=== PATIENT | male | born 1940 ===

== ENCOUNTER 2018-12-18 18:05 | Observation (INO) | payer OTHER ==
[2018-12-18] MEDS ORDERED: Pantoprazole 80 MG in Sodium Chloride 0.9% 100 ML IV STA (18:40)
[2018-12-18] MEDS ORDERED: Sodium Chloride 0.9% 1,000 ML IV ONE ×2 (18:40→23:10)
[2018-12-18 19:22] LABS: BASO % 0.3 % (0.0-2.0); EOS % 0.2 % (0.0-4.0); HEMOGLOBIN 14.3 g/dL (12.0-18.0); LYMPH # 1.2 K/uL (1.0-4.3); LYMPH % 7.6 % (20.0-40.0); MEAN CELL VOLUME 95.3 fL (80.0-94.0); MEAN CORPUSCULAR HEMOGLOBIN 32.2 pg (27.0-31.0); MEAN CORPUSCULAR HGB CONC 33.8 g/dL (33.0-37.0); MEAN PLATELET VOLUME 10.2 fL (7.2-11.7); MONO # 1.2 K/uL (0.0-0.8); MONO % 7.3 % (0.0-10.0); NEUT # 13.4 K/uL (1.8-7.0); NEUT % 84.6 % (50.0-75.0); PLATELET COUNT 173 K/uL (130-400); RBC 4.44 Mil/uL (4.40-5.90); RED CELL DISTRIBUTION WIDTH 13.1 % (11.5-14.5); WHITE BLOOD COUNT 15.9 K/uL (4.8-10.8)
[2018-12-18 19:33] LABS: INR 1.3; PROTHROMBIN TIME 14.4 SECONDS (9.7-12.2)
[2018-12-18 19:35] LABS: ALB/GLOB RATIO 1.2 (1.0-2.1); ALBUMIN 3.9 g/dL (3.5-5.0); CALCIUM 9.4 mg/dl (8.6-10.4)
--- NOTE | 2018-12-18 19:35 | C.PDOC ---
History Of Present Illness 78-year-old male presents to the ED after being sent by Dr. Jose Duncan for evaluation of epigastric abdominal pain which began around one week ago. Patient reports noticing black stool for several days. He also reports nausea, poor appetite, and trouble eating. Patient admits to taking Pepto-Bismol for his symptoms. Of note, patient states he was recently diagnosed with arrhythmia and was referred to a hi lo driver, but states he has not yet followed up. He denies fever, chills, vomiting. Time Seen by Provider: 12/18/18 18:28 Chief Complaint (Nursing): Abdominal Pain History Per: Patient History/Exam Limitations: no limitations Onset/Duration Of Symptoms: Days (one week ), Persistent Current Symptoms Are (Timing): Still Present Location Of Pain/Discomfort: Epigastric Radiation Of Pain To:: None Quality Of Discomfort: "Pain" Associated Symptoms: Nausea. denies: Fever, Chills, Vomiting Additional History Per: Patient Past Medical History Reviewed: Historical Data, Nursing Documentation, Vital Signs Vital Signs: Last Vital Signs Temp 98.3 F 12/18/18 18:17 Pulse 100 H 12/18/18 19:06 Resp 18 12/18/18 19:06 BP 112/60 12/18/18 19:06 Pulse Ox 98 12/18/18 19:06 - Medical History PMH: No Chronic Diseases Surgical History: No Surg Hx Family History: States: Unknown Family Hx - Social History Hx Alcohol Use: No Hx Substance Use: No - Immunization History Hx Tetanus Toxoid Vaccination: No Hx Influenza Vaccination: No Hx Pneumococcal Vaccination: No Review Of Systems Constitutional: Positive for: Other (poor appetite, trouble eating ). Negative for: Fever, Chills Gastrointestinal: Positive for: Nausea, Abdominal Pain, Other (black stool ). Negative for: Vomiting Physical Exam - Physical Exam Appears: Non-toxic, No Acute Distress Skin: Normal Color, Warm, Dry Head: Atraumatic, Normacephalic Eye(s): bilateral: Normal Inspection Oral Mucosa: Moist Neck: Supple Chest: Symmetrical, No Deformity, No Tenderness Cardiovascular: Rhythm Irregular, Murmur, Other (borderline tachycardic) Respiratory: Normal Breath Sounds, No Rales, No Rhonchi, No Wheezing Gastrointestinal/Abdominal: Bowel Sounds (normal ), Soft, Tenderness (epigastric ), Guarding (mild), No Rebound Rectal: Rectal Tone (normal ), Other (black stool noted, negative stool guaiac test) Extremity: Normal ROM, Capillary Refill (less than 2 seconds ) Neurological/Psych: Oriented x3, Normal Speech, Normal Cognition ED Course And Treatment - Laboratory Results Result Diagrams: 12/18/18 19:17 12/18/18 19:17 Lab Results: PT 14.4 SECONDS (9.7-12.2) H 12/18/18 19:17 INR 1.3 12/18/18 19:17 APTT 37.0 SECONDS (21-34) H 12/18/18 19:17 Total Bilirubin 2.4 mg/dL (0.2-1.3) H 12/18/18 19:17 AST 30 U/L (17-59) 12/18/18 19:17 ALT 33 U/L (21-72) 12/18/18 19:17 Alkaline Phosphatase 76 U/L (38-126) 12/18/18 19:17 Total Protein 7.2 g/dL (6.3-8.3) 12/18/18 19:17 Albumin 3.9 g/dL (3.5-5.0) 12/18/18 19:17 Globulin 3.3 gm/dL (2.2-3.9) 12/18/18 19:17 Albumin/Globulin Ratio 1.2 (1.0-2.1) 12/18/18 19:17 Lipase 18 U/L (23-300) L 12/18/18 19:17 Lab Interpretation: Abnormal (WBC 15.9, BUN 38 Cr 1.4) ECG: Interpreted By Nc ECG Rhythm: Atrial Fibrillation ECG Interpretation: Abnormal O2 Sat by Pulse Oximetry: 98 (on RA) Pulse Ox Interpretation: Normal - Radiology CXR: Interpreted by Nc CXR Interpretation: Yes: No Acute Disease - CT Scan/US CT A/P Other Rad Studies (CT/US): Read By Radiologist, Radiology Report Reviewed CT/US Interpretation: CT SCAN OF THE ABDOMEN AND PELVIS WITH CONTRAST. CLINICAL HISTORY: Epigastric pain. Comparison: 05/13/2015. TECHNIQUE: Multiple axial and coronal CT images were obtained through the abdomen and pelvis without administration of intravenous contrast material. Patient ingested oral contrast. COMMENTS: Distended gallbladder. Cholelithiasis. Diffuse thickening of the gallbladder with prominent surrounding inflammatory fat stranding. Findings are suggestive of acute calculous cholecystitis without perforation or abscess formation. Bilateral fat containing inguinal hernias without incarceration. Mild prostatomegaly. Mild diffuse thickening of the wall of the bladder. Uncomplicated colonic diverticulosis. Scattered prostatic calcifications. 1.0 cm right renal cyst. 4.6 cm left renal simple cyst. The liver is of uniform attenuation without mass or defect. There is no intra or extrahepatic biliary ductal dilatation. The spleen is normal. The pancreas is of normal contour and attenuation characteristics. There is no evidence of adrenal mass. The kidneys are normal in size, shape and configuration. There is no evidence of renal or ureteral mass. No renal or ureteral calculi are identified. There is no hydroureter or hydronephrosis. No evidence for appendicitis. There is no bowel wall thickening. No evidence for small or large bowel obstruction. There is no evidence of abdominal ascites or lymphadenopathy. There is no evidence of intrinsic or extrinsic bladder mass. There is no pelvic ascites or lymphadenopathy. Images of the lung bases show no evidence of pleural or parenchymal mass. There are no pleural effusions. The bony structures are free of lytic or blastic lesions. Moderate diffuse spondylosis. IMPRESSION: Distended gallbladder. Cholelithiasis. Diffuse thickening of the gallbladder with prominent surrounding inflammatory fat stranding. Findings are suggestive of acute calculous cholecystitis without perforation or abscess formation. Bilateral fat containing inguinal hernias without incarceration. Mild prostatomegaly. Mild diffuse thickening of the wall of the bladder. Probably mild cystitis. Uncomplicated colonic diverticulosis. Scattered prostatic calcifications. 1.0 cm right renal cyst. 4.6 cm left renal simple cyst. Progress Note: Bloodwork, urinalysis, CXR, EKG, CT A/P ordered and reviewed. Protonix IVP and IV Fluids given. - Physician Consult Information Physician Contacted: Jm Nolan Outcome Of Conversation: He agrees to admit patient for Dr Ke Duncan. Disposition - Disposition Disposition: HOSPITALIZED Disposition Time: 20:41 Condition: STABLE - POA Present On Arrival: None - Clinical Impression Clinical Impression: Abdominal pain, Dehydration, Atrial fibrillation, Cholecystitis with cholelithiasis - PA / PHOTOGRAPH EDITOR / Resident Statement MD/DO has reviewed & agrees with the documentation as recorded. - Scribe Statement The provider has reviewed the documentation as recorded by the Scribe (Shagufta Antunez) Provider Attestation: All medical record entries made by the Scribe were at my direction and personally dictated by me. I have reviewed the chart and agree that the record accurately reflects my personal performance of the history, physical exam, medical decision making, and the department course for this patient. I have also personally directed, reviewed, and agree with the discharge instructions and disposition.
[2018-12-18] MEDS ORDERED: Iohexol 240 (50 ml) ONE (20:15)
[2018-12-18 20:40] LABS: BANDS 5 % (0-2); LYMPHOCYTE 9 % (20-40); MONOCYTE 4 % (0-10); NEUTROPHIL 82 % (50-75); TOTAL CELLS COUNTED 100
[2018-12-18 20:41] LABS: GIANT PLATELETS PRESENT; LARGE PLATELETS PRESENT; MICROCYTOSIS SLIGHT; PLATELET ESTIMATE NORMAL (NORMAL); TEARDROP CELLS SLIGHT
[2018-12-18 21:24] VITALS: RESP 20
[2018-12-18 21:43] LABS: SQUAMOUS EPITHIAL < 1 /hpf (0-5); URINE BACTERIA OCC (<OCC); URINE BILIRUBIN NEGATIVE (NEGATIVE); URINE BLOOD 2+ (NEGATIVE); URINE CLARITY Hazy (Clear); URINE COLOR Yellow (YELLOW); URINE GLUCOSE (UA) NORMAL (Normal); URINE LEUKOCYTE ESTERASE NEG Leu/uL (Negative); URINE PROTEIN 2+ mg/dL (NEGATIVE)
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
--- NOTE | 2018-12-19 03:20 | CP.PCM.CON ---
History of Present Illness - History of Present Illness History of Present Illness: General Surgery Consult for Dr. Wilson Reason for consult: abd pain, rule out cholecystitis 78 M with PMH of HLD who presents for abdominal pain. Patient was seen and examined on 6T. He states his pain started on Sunday. He stated that the pain had gotten progressively worse over the last few days. Patient tried taking pepto-bismol which provided minimal relief. he denies fever/chills or nauea/vomiting. He states his last bowel movement was 2 days ago and it was dark. He was seen at PMD Dr. Jose Duncna's office yesterday who recommended that patient come in for evaluation of possible GI bleed, abdominal pain and cardiac arrhythmia. He has no prior history of cardiac issues. He currenly denies any chest pain, palpitations, shortness of breath, abd pain, n/v/d, hematochezia, melena, dizziness/lightheadedness, fatigue, malaise, urinary symptoms. PMD: Dr. Jose Duncan PMH: Hyperlipidemia PSH: denies All: NKDA Social: former smoker quit in 1983 (smoked 1.5ppd), (+) ETOH use - one drink every 6 months. Denies illicit drug use. Review of Systems - Review of Systems All systems: reviewed and no additional remarkable complaints except (as per HPI) Past Patient History - Infectious Disease Hx of Infectious Diseases: None - Past Social History Smoking Status: Never Smoked - PSYCHIATRIC Hx Substance Use: No - SURGICAL HISTORY Hx Surgeries: No - ANESTHESIA Hx Anesthesia: Yes Hx Anesthesia Reactions: No Hx Malignant Hyperthermia: No Meds Allergies/Adverse Reactions: Allergies Allergy/AdvReac Type Severity Reaction Status Date / Time No Known Allergies Allergy Verified 12/18/18 18:22 - Medications Medications: Current Medications Aspirin (Aspirin Chewable) 81 mg PO DAILY SHILOH Sodium Chloride (Sodium Chloride 0.9%) 1,000 mls @ 100 mls/hr IV .Q10H ONE Stop: 12/19/18 09:09 Last Admin: 12/18/18 23:45 Dose: 100 mls/hr Ceftriaxone Sodium 1 gm/ (Sodium Chloride) 100 mls @ 100 mls/hr IVPB DAILY SHILOH; Protocol Last Admin: 12/19/18 01:35 Dose: 100 mls/hr Physical Exam - Constitutional Appears: No Acute Distress - Head Exam Head Exam: ATRAUMATIC, NORMOCEPHALIC - Eye Exam Eye Exam: EOMI, Normal appearance. absent: Scleral icterus Pupil Exam: PERRL - ENT Exam ENT Exam: Mucous Membranes Moist - Respiratory Exam Respiratory Exam: NORMAL BREATHING PATTERN - Cardiovascular Exam Cardiovascular Exam: Irregular Rhythm - GI/Abdominal Exam GI & Abdominal Exam: Normal Bowel Sounds, Soft. absent: Distended, Firm, Guarding, Hernia, Rebound, Rigid, Tenderness - Extremities Exam Extremities exam: Positive for: normal capillary refill, pedal pulses present - Back Exam Back exam: absent: CVA tenderness (L), CVA tenderness (R) - Neurological Exam Neurological exam: Alert, CN II-XII Intact, Oriented x3 - Psychiatric Exam Psychiatric exam: Normal Affect, Normal Mood - Skin Skin Exam: Dry, Intact, Warm Results - Vital Signs Recent Vital Signs: Last Vital Signs Temp 98.4 F 12/18/18 23:10 Pulse 86 12/18/18 23:30 Resp 20 12/18/18 23:10 BP 117/66 12/18/18 23:10 Pulse Ox 98 12/19/18 00:54 - Labs Result Diagrams: 12/18/18 19:17 12/18/18 19:17 Labs: Laboratory Results - last 24 hr 12/18/18 12/18/18 12/18/18 18:47 19:17 19:17 WBC 15.9 H RBC 4.44 Hgb 14.3 Hct 42.3 MCV 95.3 H MCH 32.2 H MCHC 33.8 RDW 13.1 Plt Count 173 MPV 10.2 Neut % (Auto) 84.6 H Lymph % (Auto) 7.6 L Sargent % (Auto) 7.3 Eos % (Auto) 0.2 Baso % (Auto) 0.3 Neut # (Auto) 13.4 H Lymph # (Auto) 1.2 Sargent # (Auto) 1.2 H Eos # (Auto) 0.0 Baso # (Auto) 0.0 Neutrophils % (Manual) 82 H Band Neutrophils % 5 H Lymphocytes % (Manual) 9 L Monocytes % (Manual) 4 Eosinophils % (Manual) TEST NOT PERFORMED Platelet Estimate Normal Large Platelets Present Giant Platelets Present Microcytosis (manual) Slight Tear Drop Cells Slight PT 14.4 H INR 1.3 APTT 37.0 H Sodium Potassium Chloride Carbon Dioxide Anion Gap BUN Creatinine Est GFR ( Amer) Est GFR (Non-Af Amer) POC Glucose (mg/dL) Random Glucose Calcium Total Bilirubin AST ALT Alkaline Phosphatase Total Protein Albumin Globulin Albumin/Globulin Ratio Lipase Urine Color Urine Clarity Urine pH Ur Specific Wallis Urine Protein Urine Glucose (UA) Urine Ketones Urine Blood Urine Nitrate Urine Bilirubin Urine Urobilinogen Ur Leukocyte Esterase Urine WBC (Auto) Urine RBC (Auto) Ur Squamous Epith Cells Urine Bacteria Stool Occult Blood Negative Blood Type Antibody Screen 12/18/18 12/18/18 12/18/18 19:17 19:17 21:41 WBC RBC Hgb Hct MCV MCH MCHC RDW Plt Count MPV Neut % (Auto) Lymph % (Auto) Sargent % (Auto) Eos % (Auto) Baso % (Auto) Neut # (Auto) Lymph # (Auto) Sargent # (Auto) Eos # (Auto) Baso # (Auto) Neutrophils % (Manual) Band Neutrophils % Lymphocytes % (Manual) Monocytes % (Manual) Eosinophils % (Manual) Platelet Estimate Large Platelets Giant Platelets Microcytosis (manual) Tear Drop Cells PT INR APTT Sodium 137 Potassium 4.2 Chloride 96 L Carbon Dioxide 33 H Anion Gap 13 BUN 38 H Creatinine 1.4 Est GFR ( Amer) 60 Est GFR (Non-Af Amer) 49 POC Glucose (mg/dL) Random Glucose 116 H Calcium 9.4 Total Bilirubin 2.4 H AST 30 ALT 33 Alkaline Phosphatase 76 Total Protein 7.2 Albumin 3.9 Globulin 3.3 Albumin/Globulin Ratio 1.2 Lipase 18 L Urine Color Yellow Urine Clarity Hazy Urine pH 5.0 Ur Specific Wallis 1.020 Urine Protein 2+ H Urine Glucose (UA) Normal Urine Ketones Negative Urine Blood 2+ H Urine Nitrate Negative Urine Bilirubin Negative Urine Urobilinogen 2.0 Ur Leukocyte Esterase Neg Urine WBC (Auto) 3 Urine RBC (Auto) 38 H Ur Squamous Epith Cells < 1 Urine Bacteria Occ H Stool Occult Blood Blood Type O POSITIVE Antibody Screen Negative 12/18/18 22:10 WBC RBC Hgb Hct MCV MCH MCHC RDW Plt Count MPV Neut % (Auto) Lymph % (Auto) Sargent % (Auto) Eos % (Auto) Baso % (Auto) Neut # (Auto) Lymph # (Auto) Sargent # (Auto) Eos # (Auto) Baso # (Auto) Neutrophils % (Manual) Band Neutrophils % Lymphocytes % (Manual) Monocytes % (Manual) Eosinophils % (Manual) Platelet Estimate Large Platelets Giant Platelets Microcytosis (manual) Tear Drop Cells PT INR APTT Sodium Potassium Chloride Carbon Dioxide Anion Gap BUN Creatinine Est GFR ( Amer) Est GFR (Non-Af Amer) POC Glucose (mg/dL) 115 H Random Glucose Calcium Total Bilirubin AST ALT Alkaline Phosphatase Total Protein Albumin Globulin Albumin/Globulin Ratio Lipase Urine Color Urine Clarity Urine pH Ur Specific Wallis Urine Protein Urine Glucose (UA) Urine Ketones Urine Blood Urine Nitrate Urine Bilirubin Urine Urobilinogen Ur Leukocyte Esterase Urine WBC (Auto) Urine RBC (Auto) Ur Squamous Epith Cells Urine Bacteria Stool Occult Blood Blood Type Antibody Screen Assessment & Plan - Assessment and Plan (Free Text) Assessment: 78 M who presented with abd pain and hyperbilirubinemia Plan: -f/u RUQ US -Trend bilirubin -Pain control -Recommend rate control and anti-coagulation for new-onset afib -Further recommendations as per Dr. Katie Andrade PGY2 - Date & Time Date: 12/19/18 Time: 04:30
[2018-12-19] MEDS: Lactated Ringer's 1,000 ML IV SCH ×2 (05:30→13:28)
--- NOTE | 2018-12-19 07:42 | RAD ---
Date of service: 12/18/2018 PROCEDURE: CHEST RADIOGRAPH, 1 VIEW HISTORY: GI Bleeding COMPARISON: None available. FINDINGS: LUNGS: Clear. PLEURA: No pneumothorax or pleural fluid seen. CARDIOVASCULAR: There is presence of aortic atherosclerotic calcification on x-ray. Normal. OSSEOUS STRUCTURES: No significant abnormalities. VISUALIZED UPPER ABDOMEN: Normal. OTHER FINDINGS: None. IMPRESSION: No active disease.Other findings as above.
--- NOTE | 2018-12-19 07:45 | CP.PCM.PN ---
<Maria M Alexander - Last Filed: 12/19/18 19:57> Subjective - Date & Time of Evaluation Date of Evaluation: 12/19/18 Time of Evaluation: 07:44 - Subjective Subjective: PGY-1 Maria M Alexander D.O. Medicine progress note for Dr. Castro's service: Patient was seen and examined this morning. Patient states that he is feeling much better than yesterday. He only has mild abdominal pain. He denies nausea and vomiting. Denies chest pain and palpitations. Objective - Vital Signs/Intake and Output Vital Signs (last 24 hours): Temp Pulse Resp BP Pulse Ox 98.4 F 87 20 117/66 98 12/18/18 23:10 12/19/18 05:20 12/18/18 23:10 12/18/18 23:10 12/19/18 00:54 - Medications Medications: Current Medications Aspirin (Aspirin Chewable) 81 mg PO DAILY SHILOH Ceftriaxone Sodium 1 gm/ (Sodium Chloride) 100 mls @ 100 mls/hr IVPB DAILY SHILOH; Protocol Last Admin: 12/19/18 01:35 Dose: 100 mls/hr Lactated Ringer's (Lactated Ringer's) 1,000 mls @ 125 mls/hr IV .Q8H SHILOH Last Admin: 12/19/18 05:30 Dose: 125 mls/hr Pantoprazole Sodium (Protonix Inj) 40 mg IVP DAILY SHILOH - Labs Labs: 12/18/18 19:17 12/18/18 19:17 PT 14.4 SECONDS (9.7-12.2) H 12/18/18 19:17 INR 1.3 12/18/18 19:17 APTT 37.0 SECONDS (21-34) H 12/18/18 19:17 - Constitutional Appears: Non-toxic, No Acute Distress - Head Exam Head Exam: ATRAUMATIC, NORMAL INSPECTION - Eye Exam Eye Exam: EOMI, Normal appearance - ENT Exam ENT Exam: Mucous Membranes Moist - Respiratory Exam Respiratory Exam: Clear to Ausculation Bilateral, NORMAL BREATHING PATTERN - Cardiovascular Exam Cardiovascular Exam: RRR, Murmur - GI/Abdominal Exam GI & Abdominal Exam: Soft, Tenderness (mild), Hernia (umbilical) - Extremities Exam Extremities Exam: Normal Inspection - Neurological Exam Neurological Exam: Alert - Psychiatric Exam Psychiatric exam: Normal Affect, Normal Mood - Skin Skin Exam: Dry, Normal Color, Warm Assessment and Plan - Assessment and Plan (Free Text) Assessment: Patient is a 78 yo male with HLD who presented with abdominal pain. Patient found to have new onset Afib and systolic murmur. Patient with imaging consistent with cholecystisis. Echo shows severe aortic stenosis. Plan: Severe aortic stenosis - Echo: severe aortic stenosis, with very high gradients - Final report pending - Cardiology consulted ([facility])- rec TAVR as outpatient New onset Atrial fibrillation - Lovenox 80 mg SC Q12H - Start oral anticoag - Cardiology consulted ([facility])- rec NOAC or warfarin, stop ASA Cholecystitis, acute - CT A/P: Prominently distended gallbladder with associated sludge and calculi as well as prominent gallbladder wall thickening, edema, and pericholecystic fluid. These findings are concerning for acute cholecystitis. Correlation with right upper quadrant abdominal ultrasound may be helpful if clinically indicated. - Abd US: Thickened gallbladder wall with gallbladder wall irregularities- cholesterolosis and/or tiny diffuse polyps are 1 consideration. No pericholecystic fluid. No positive ultrasound Marion sign. Gallbladder sludge probable minute tiny gallstones within the sludge in the gallbladder neck. No dilated ducts. - Rocephin 1 g IV daily- started 12/18 - Surgery consulted ([facility])- high risk for cosme-operative complications as per cardio Hyperlipidemia, chronic - Crestor 10 mg PO QHS Ppx: VTE: SCDs, Lovenox 80 mg SC Q12H GI: Protonix 40 mg IV daily Diet: Heart healthy Code status: full code Dispo: Monitor patient's abdominal pain and PO intake. Will need f/u cardiology evaluation for AV replacement. Also need to start PO anticoagulation. Case discussed with attending, Dr. Castro. <Arcelia Castro - Last Filed: 12/24/18 21:54> Objective - Vital Signs/Intake and Output Vital Signs (last 24 hours): Temp Pulse Resp BP Pulse Ox 98.5 F 85 20 125/64 99 12/20/18 07:00 12/20/18 07:00 12/20/18 07:00 12/20/18 07:00 12/20/18 07:00 - Labs Labs: 12/20/18 08:08 12/20/18 08:08 PT 14.4 SECONDS (9.7-12.2) H 12/18/18 19:17 INR 1.3 12/18/18 19:17 APTT 37.0 SECONDS (21-34) H 12/18/18 19:17 Attending/Attestation - Attestation I have personally seen and examined this patient.: Yes I have fully participated in the care of the patient.: Yes I have reviewed all pertinent clinical information, including history, physical exam and plan: Yes Notes (Text): seen and examined new onset afib and severe cholecystitis. 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
[2018-12-19 07:51] LABS: BASO % 0.3 % (0.0-2.0); EOS % 0.4 % (0.0-4.0); LYMPH # 1.1 K/uL (1.0-4.3); LYMPH % 9.7 % (20.0-40.0); MEAN CELL VOLUME 96.1 fL (80.0-94.0); MEAN CORPUSCULAR HEMOGLOBIN 32.8 pg (27.0-31.0); MEAN CORPUSCULAR HGB CONC 34.1 g/dL (33.0-37.0); MEAN PLATELET VOLUME 10.7 fL (7.2-11.7); MONO % 8.9 % (0.0-10.0); NEUT % 80.7 % (50.0-75.0); NRBC % 0.1 % (0.0-2.0); PLATELET COUNT 183 K/uL (130-400); RBC 3.95 Mil/uL (4.40-5.90); RED CELL DISTRIBUTION WIDTH 13.2 % (11.5-14.5); WHITE BLOOD COUNT 11.1 K/uL (4.8-10.8)
[2018-12-19 08:38] LABS: ALB/GLOB RATIO 1.1 (1.0-2.1); ALBUMIN 3.2 g/dL (3.5-5.0); ALT/SGPT 34 U/L (21-72); AST/SGOT 30 U/L (17-59); BLOOD UREA NITROGEN 28 mg/dL (9-20); CALCIUM 8.5 mg/dl (8.6-10.4); GFR NON-AFRICAN AMERICAN > 60; HDL CHOLESTEROL 26 mg/dL (30-70)
[2018-12-19 08:48] LABS: LDL CHOLESTEROL 62 mg/dL (0-129)
[2018-12-19 09:01] LABS: EOSINOPHIL 1 % (0-4); LYMPHOCYTE 10 % (20-40); NEUTROPHIL 81 % (50-75); TOTAL CELLS COUNTED 100
[2018-12-19 09:02] LABS: MONOCYTE 8 % (0-10); PLATELET ESTIMATE NORMAL (NORMAL)
--- NOTE | 2018-12-19 09:14 | US ---
Date of service: 12/19/2018 HISTORY: abd pain, eval for cholecystitis COMPARISON: None. TECHNIQUE: Sonographic evaluation of the right upper quadrant of the abdomen. FINDINGS: LIVER: Measures 14.8 cm in length. Increased echogenicity of the liver parenchyma. No mass. No intrahepatic bile duct dilatation. GALLBLADDER: Gallbladder moderately distended. The gallbladder wall appears thickened at 5.2 mm. Some tiny nonshadowing echogenicities irregularly along the gallbladder wall on sagittal imaging-cholesterolosis is a consideration. Minute less than 5 mm yet extensive tiny polyps are another. No cyst polyp greater than 1 cm in size seen. There may be a few punctate shadowing stones in the gallbladder sludge near the gallbladder neck also present. It is difficult to confirm mobility of these tiny echogenicities with shadowing in the gallbladder neck. There is gallbladder sludge present No positive Marion sign seen. COMMON BILE DUCT: Measures 4.9 mm. No stones. No dilatation. PANCREAS: Unremarkable as visualized. No mass. No ductal dilatation. RIGHT KIDNEY: Measures 9.3 x 4.4 x 4.9 cm in length. Normal echogenicity. No calculus, mass, or hydronephrosis. A mid to lower pole right renal exophytic cyst is present measuring 1.0 x 1.3 x 1.2 cm AORTA: No aneurysmal dilatation. IVC: Unremarkable. OTHER FINDINGS: None . IMPRESSION: Thickened gallbladder wall with gallbladder wall irregularities-cholesterolosis and/or tiny diffuse polyps are 1 consideration. No pericholecystic fluid. No positive ultrasound Marion sign. Gallbladder sludge probable minute tiny gallstones within the sludge in the gallbladder neck. No dilated ducts. Right exophytic renal cyst.
--- NOTE | 2018-12-19 09:21 | CT ---
Date of service: 12/18/2018 PROCEDURE: CT Abdomen and Pelvis without intravenous contrast HISTORY: epigastric pain COMPARISON: None. TECHNIQUE: Multiple contiguous axial images were performed through the abdomen and pelvis without the use of intravenous contrast. Subsequently, sagittal and coronal reformatted images were obtained. Radiation dose: Total exam DLP = 745.72 mGy-cm. This CT exam was performed using one or more of the following dose reduction techniques: Automated exposure control, adjustment of the mA and/or kV according to patient size, and/or use of iterative reconstruction technique. FINDINGS: LOWER THORAX: 3 millimeter nodule within the right middle lobe. 2 millimeter nodule within the inferior left upper lobe. Coronary and aortic calcifications. LIVER: Prominent liver with fatty infiltration. 1 millimeter calcification within the right hepatic lobe. GALLBLADDER AND BILE DUCTS: Prominently distended gallbladder with associated sludge and calculi as well as prominent gallbladder wall thickening, edema, and pericholecystic fluid. These findings are concerning for acute cholecystitis. Correlation with right upper quadrant abdominal ultrasound may be helpful if clinically indicated. PANCREAS: Unremarkable. No gross lesion or ductal dilatation. SPLEEN: Unremarkable. ADRENALS: Unremarkable. No mass. KIDNEYS AND URETERS: Right kidney: Exophytic 1.6 centimeter low-attenuation lesion demonstrating a Hounsfield unit attenuation of 8 suggestive for a cyst. Left Kidney: 5.2 centimeter low-attenuation lesion demonstrating a Hounsfield unit attenuation of 8 also suggestive for a cyst. Additional midpole 1.7 centimeter low-attenuation lesion demonstrating a Hounsfield unit attenuation of 2 suggestive for a cyst. Lower pole 1.3 centimeter low-attenuation lesion demonstrating a Hounsfield unit attenuation of 13, indeterminate but possibly representing a cyst. Additional low-attenuation lesion more laterally within the left kidney measuring 6 millimeters, too small to adequately characterize. VASCULATURE: Atherosclerotic calcification and plaque within the aorta and branch vessels. BOWEL: Fecal retention in the colon. Few scattered diverticuli. APPENDIX: Unremarkable. Normal appendix. PERITONEUM: Unremarkable. No free fluid. No free air. LYMPH NODES: Shotty para-aortic and inguinal lymph nodes. Shotty mesenteric lymph nodes. BLADDER: Mildly thick-walled urinary bladder. Clinical correlation. REPRODUCTIVE: Heterogeneous and prominent prostate with calcification. BONES: Degenerative changes in the spine OTHER FINDINGS: Small fat containing bilateral inguinal hernias. IMPRESSION: 1. Prominently distended gallbladder with associated sludge and calculi as well as prominent gallbladder wall thickening, edema, and pericholecystic fluid. These findings are concerning for acute cholecystitis. Correlation with right upper quadrant abdominal ultrasound may be helpful if clinically indicated. 2. Mildly thick-walled urinary bladder. Clinical correlation. 3. Heterogeneous and prominent prostate with calcification. 4. Bilateral renal low-attenuation lesions. These may be better evaluated with renal ultrasound. Additional findings as above. A preliminary report was generated at 12:29 a.m. on 12/19/[address] Roly Zelaya from [employer].
--- NOTE | 2018-12-19 12:37 | CP.PCM.PN ---
Subjective - Date & Time of Evaluation Date of Evaluation: 12/19/18 Time of Evaluation: 12:34 - Subjective Subjective: patient seen and examined. additional findungs of a left paraumbilical scar, reducible umbilical hernia and diiastasis recti. will schedule for lap ana rosa and repair of umbilical hernia when cleared Objective - Vital Signs/Intake and Output Vital Signs (last 24 hours): Temp Pulse Resp BP Pulse Ox 99.3 F 83 20 121/61 96 12/19/18 07:10 12/19/18 07:10 12/19/18 07:10 12/19/18 07:10 12/19/18 07:10 - Medications Medications: Current Medications Aspirin (Aspirin Chewable) 81 mg PO DAILY SHILOH Ceftriaxone Sodium 1 gm/ (Sodium Chloride) 100 mls @ 100 mls/hr IVPB DAILY SHILOH; Protocol Last Admin: 12/19/18 11:26 Dose: 100 mls/hr Lactated Ringer's (Lactated Ringer's) 1,000 mls @ 125 mls/hr IV .Q8H SHILOH Last Admin: 12/19/18 05:30 Dose: 125 mls/hr Pantoprazole Sodium (Protonix Inj) 40 mg IVP DAILY SHILOH Last Admin: 12/19/18 11:26 Dose: 40 mg - Labs Labs: 12/19/18 07:33 12/19/18 07:33 PT 14.4 SECONDS (9.7-12.2) H 12/18/18 19:17 INR 1.3 12/18/18 19:17 APTT 37.0 SECONDS (21-34) H 12/18/18 19:17
--- NOTE | 2018-12-19 18:04 | CP.PCM.CON ---
History of Present Illness - History of Present Illness History of Present Illness: The pt is a 78 year old man presenting with abdominal pain. A ct and US were performed, and a lap ana rosa and umbilical hearnia repair are planned. pt was noted to be in atrial fibrillation, and the patient had been referred to a parole officer for this by Dr gibbons, he had not gone yet. The rate is controlled. The patient denies ABARCA, chest pain or dizziness, he does not do much exercise. Review of Systems - Review of Systems All systems: reviewed and no additional remarkable complaints except (as above) Past Patient History - Infectious Disease Hx of Infectious Diseases: None - Past Social History Smoking Status: Never Smoked - PSYCHIATRIC Hx Substance Use: No - SURGICAL HISTORY Hx Surgeries: No - ANESTHESIA Hx Anesthesia: Yes Hx Anesthesia Reactions: No Hx Malignant Hyperthermia: No Meds Allergies/Adverse Reactions: Allergies Allergy/AdvReac Type Severity Reaction Status Date / Time No Known Allergies Allergy Verified 12/18/18 18:22 - Medications Medications: Current Medications Aspirin (Aspirin Chewable) 81 mg PO DAILY [facility] Ceftriaxone Sodium 1 gm/ (Sodium Chloride) 100 mls @ 100 mls/hr IVPB DAILY [facility]; Protocol Last Admin: 12/19/18 11:26 Dose: 100 mls/hr Lactated Ringer's (Lactated Ringer's) 1,000 mls @ 125 mls/hr IV .Q8H [facility] Last Admin: 12/19/18 13:28 Dose: Not Given Pantoprazole Sodium (Protonix Inj) 40 mg IVP DAILY [facility] Last Admin: 12/19/18 11:26 Dose: 40 mg Rosuvastatin Calcium (Crestor) 10 mg PO HS [facility] Physical Exam - Constitutional Appears: Well, No Acute Distress - Head Exam Head Exam: ATRAUMATIC - Eye Exam Eye Exam: EOMI, Normal appearance - ENT Exam ENT Exam: Mucous Membranes Moist - Neck Exam Neck exam: Positive for: Normal Inspection - Respiratory Exam Respiratory Exam: Clear to Auscultation Bilateral - Cardiovascular Exam Cardiovascular Exam: Irregular Rhythm, Systolic Murmur Additional comments: 4/6 long systolic murmur in the aortic region - GI/Abdominal Exam GI & Abdominal Exam: Normal Bowel Sounds, Soft - Extremities Exam Extremities exam: Positive for: normal inspection - Back Exam Back exam: NORMAL INSPECTION - Neurological Exam Neurological exam: Alert, CN II-XII Intact, Oriented x3, Reflexes Normal - Psychiatric Exam Psychiatric exam: Normal Affect, Normal Mood - Skin Skin Exam: Dry, Normal Color Results - Vital Signs Recent Vital Signs: Last Vital Signs Temp 98.6 F 12/19/18 15:00 Pulse 84 12/19/18 16:00 Resp 20 12/19/18 15:00 BP 136/56 L 12/19/18 15:00 Pulse Ox 96 12/19/18 16:00 - Labs Result Diagrams: 12/19/18 07:33 12/19/18 07:33 Labs: Laboratory Results - last 24 hr 12/18/18 12/18/18 12/18/18 18:47 19:17 19:17 WBC 15.9 H RBC 4.44 Hgb 14.3 Hct 42.3 MCV 95.3 H MCH 32.2 H MCHC 33.8 RDW 13.1 Plt Count 173 MPV 10.2 Neut % (Auto) 84.6 H Lymph % (Auto) 7.6 L [place] % (Auto) 7.3 Eos % (Auto) 0.2 Baso % (Auto) 0.3 Neut # (Auto) 13.4 H Lymph # (Auto) 1.2 [place] # (Auto) 1.2 H Eos # (Auto) 0.0 Baso # (Auto) 0.0 Neutrophils % (Manual) 82 H Band Neutrophils % 5 H Lymphocytes % (Manual) 9 L Monocytes % (Manual) 4 Eosinophils % (Manual) TEST NOT PERFORMED Platelet Estimate Normal Large Platelets Present Giant Platelets Present Microcytosis (manual) Slight Tear Drop Cells Slight PT 14.4 H INR 1.3 APTT 37.0 H Sodium Potassium Chloride Carbon Dioxide Anion Gap BUN Creatinine Est GFR ( Amer) Est GFR (Non-Af Amer) POC Glucose (mg/dL) Random Glucose Hemoglobin A1c Calcium Phosphorus Magnesium Total Bilirubin AST ALT Alkaline Phosphatase Total Creatine Kinase CK-MB (Mass) Troponin I Total Protein Albumin Globulin Albumin/Globulin Ratio Triglycerides Cholesterol LDL Cholesterol Direct HDL Cholesterol Lipase Free T4 TSH 3rd Generation Urine Color Urine Clarity Urine pH Ur Specific [place] Urine Protein Urine Glucose (UA) Urine Ketones Urine Blood Urine Nitrate Urine Bilirubin Urine Urobilinogen Ur Leukocyte Esterase Urine WBC (Auto) Urine RBC (Auto) Ur Squamous Epith Cells Urine Bacteria Stool Occult Blood Negative Blood Type Antibody Screen 12/18/18 12/18/18 12/18/18 19:17 19:17 21:41 WBC RBC Hgb Hct MCV MCH MCHC RDW Plt Count MPV Neut % (Auto) Lymph % (Auto) [place] % (Auto) Eos % (Auto) Baso % (Auto) Neut # (Auto) Lymph # (Auto) [place] # (Auto) Eos # (Auto) Baso # (Auto) Neutrophils % (Manual) Band Neutrophils % Lymphocytes % (Manual) Monocytes % (Manual) Eosinophils % (Manual) Platelet Estimate Large Platelets Giant Platelets Microcytosis (manual) Tear Drop Cells PT INR APTT Sodium 137 Potassium 4.2 Chloride 96 L Carbon Dioxide 33 H Anion Gap 13 BUN 38 H Creatinine 1.4 Est GFR ( Amer) 60 Est GFR (Non-Af Amer) 49 POC Glucose (mg/dL) Random Glucose 116 H Hemoglobin A1c Calcium 9.4 Phosphorus Magnesium Total Bilirubin 2.4 H AST 30 ALT 33 Alkaline Phosphatase 76 Total Creatine Kinase CK-MB (Mass) Troponin I Total Protein 7.2 Albumin 3.9 Globulin 3.3 Albumin/Globulin Ratio 1.2 Triglycerides Cholesterol LDL Cholesterol Direct HDL Cholesterol Lipase 18 L Free T4 TSH 3rd Generation Urine Color Yellow Urine Clarity Hazy Urine pH 5.0 Ur Specific [place] 1.020 Urine Protein 2+ H Urine Glucose (UA) Normal Urine Ketones Negative Urine Blood 2+ H Urine Nitrate Negative Urine Bilirubin Negative Urine Urobilinogen 2.0 Ur Leukocyte Esterase Neg Urine WBC (Auto) 3 Urine RBC (Auto) 38 H Ur Squamous Epith Cells < 1 Urine Bacteria Occ H Stool Occult Blood Blood Type O POSITIVE Antibody Screen Negative 12/18/18 12/19/18 12/19/18 22:10 06:20 07:33 WBC 11.1 H RBC 3.95 L Hgb 13.0 Hct 38.0 MCV 96.1 H MCH 32.8 H MCHC 34.1 RDW 13.2 Plt Count 183 MPV 10.7 Neut % (Auto) 80.7 H Lymph % (Auto) 9.7 L [place] % (Auto) 8.9 Eos % (Auto) 0.4 Baso % (Auto) 0.3 Neut # (Auto) 9.0 H Lymph # (Auto) 1.1 [place] # (Auto) 1.0 H Eos # (Auto) 0.0 Baso # (Auto) 0.0 Neutrophils % (Manual) 81 H Band Neutrophils % Lymphocytes % (Manual) 10 L Monocytes % (Manual) 8 Eosinophils % (Manual) 1 Platelet Estimate Normal Large Platelets Giant Platelets Microcytosis (manual) Tear Drop Cells PT INR APTT Sodium Potassium Chloride Carbon Dioxide Anion Gap BUN Creatinine Est GFR ( Amer) Est GFR (Non-Af Amer) POC Glucose (mg/dL) 115 H 113 H Random Glucose Hemoglobin A1c Calcium Phosphorus Magnesium Total Bilirubin AST ALT Alkaline Phosphatase Total Creatine Kinase CK-MB (Mass) Troponin I Total Protein Albumin Globulin Albumin/Globulin Ratio Triglycerides Cholesterol LDL Cholesterol Direct HDL Cholesterol Lipase Free T4 TSH 3rd Generation Urine Color Urine Clarity Urine pH Ur Specific [place] Urine Protein Urine Glucose (UA) Urine Ketones Urine Blood Urine Nitrate Urine Bilirubin Urine Urobilinogen Ur Leukocyte Esterase Urine WBC (Auto) Urine RBC (Auto) Ur Squamous Epith Cells Urine Bacteria Stool Occult Blood Blood Type Antibody Screen 12/19/18 12/19/18 12/19/18 07:33 07:33 07:33 WBC RBC Hgb Hct MCV MCH MCHC RDW Plt Count MPV Neut % (Auto) Lymph % (Auto) [place] % (Auto) Eos % (Auto) Baso % (Auto) Neut # (Auto) Lymph # (Auto) [place] # (Auto) Eos # (Auto) Baso # (Auto) Neutrophils % (Manual) Band Neutrophils % Lymphocytes % (Manual) Monocytes % (Manual) Eosinophils % (Manual) Platelet Estimate Large Platelets Giant Platelets Microcytosis (manual) Tear Drop Cells PT INR APTT Sodium 135 Potassium 3.7 Chloride 100 Carbon Dioxide 28 Anion Gap 10 BUN 28 H Creatinine 1.1 Est GFR ( Amer) > 60 Est GFR (Non-Af Amer) > 60 POC Glucose (mg/dL) Random Glucose 102 Hemoglobin A1c 5.7 Calcium 8.5 L Phosphorus 2.8 Magnesium 2.2 Total Bilirubin 2.2 H AST 30 ALT 34 Alkaline Phosphatase 68 Total Creatine Kinase 23 L CK-MB (Mass) 0.90 Troponin I 0.0220 Total Protein 6.0 L Albumin 3.2 L Globulin 2.8 Albumin/Globulin Ratio 1.1 Triglycerides 123 Cholesterol 124 LDL Cholesterol Direct 62 HDL Cholesterol 26 L Lipase Free T4 1.60 TSH 3rd Generation 0.61 Urine Color Urine Clarity Urine pH Ur Specific [place] Urine Protein Urine Glucose (UA) Urine Ketones Urine Blood Urine Nitrate Urine Bilirubin Urine Urobilinogen Ur Leukocyte Esterase Urine WBC (Auto) Urine RBC (Auto) Ur Squamous Epith Cells Urine Bacteria Stool Occult Blood Blood Type Antibody Screen - EKG Data EKG Interpreted by: Myself (atrial fibrillation, no ischemic changes) Assessment & Plan - Assessment and Plan (Free Text) Assessment: 1. The patient's physical exam and echo reveal severe aortic stenosis, with very high gradients. The patient denies symptoms, which is very surprising. Patients with severe aortic stenosis have a higher risk of cosme-operative complications, such as hypotension, shock, and sensitivity to anesthesia. For this reason, the patient is high risk. The risks and benefits of the surgery must be weighed. The patient is currently optimized. 2. With this degree of , it is only a question of time until the patient is referred for aortic valve surgery or TAVR. As ther is no current chf, this decision can be made as an outpatient. 3. Afib rate is controlled. Pt should be anticoagulated while in hospital. Will start lovenox. As an outpatient, patient should be on either a noac or warfarin, depending on his ability to pay for the noac with insurance. Stop asa.
[2018-12-19] MEDS ORDERED: Lactated Ringer's 1,000 ML IV SCH (18:17)
--- NOTE | 2018-12-19 19:37 | CARD ---
APPROVED REPORT Date of service: 12/18/2018 EKG Measurement Heart [id number] <Conclusion> Atrial fibrillation Moderate voltage criteria for LVH, may be normal variant Abnormal ECG
--- NOTE | 2018-12-19 20:36 | CARD ---
APPROVED REPORT Date of service: 12/19/2018 EXAM: Two-dimensional and M-mode echocardiogram with Doppler and color Doppler. Other Information Quality : GoodRhythm : INDICATION [place] 2D DIMENSIONS IVSd1.3 (0.7-1.1cm)LVDd4.2 (3.9-5.9cm) LVOT Diameter2.0 (1.8-2.4cm)PWd1.3 (0.7-1.1cm) LA Xzogac77 (18-58mL)LVDs2.2 (2.5-4.0cm) FS (%) 46.8 %LVEF (%)75.0 (>50%) LVEF (Kern's)65 % M-Mode DIMENSIONS Left Atrium (MM)3.99 (2.5-4.0cm)IVSd0.96 (0.7-1.1cm) Aortic Root3.84 (2.2-3.7cm)LVDd4.72 (4.0-5.6cm) Aortic Cusp Exc.0.92 (1.5-2.0cm)PWd0.81 (0.7-1.1cm) FS (%) 39 %LVDs2.88 (2.0-3.8cm) LVEF (%)70 (>50%) Aortic Valve AoV Peak Gqkdwgqt681.7cm/sAoV VTI83.2cmAO Peak GR.71mmHg LVOT Peak Lorqdiic724.9cm/sLVOT VTI27.22cmAO Mean GR.43mmHg BILL (VMAX)1.66hj8OSL (VTI)1.47cd3NG P 1/2 [id number] Mitral Valve MV E Rzbvnthz14.8cm/sE/A ratio0.0 TDI Lateral E' Peak V10.51cm/sMedial E' Peak V3.19cm/sE/Lateral E'6.8 E/Medial E'22.5 Tricuspid Valve TR Peak Iltpunod624dp/sTR Peak Gr.44deJeCNFR46dgUo LEFT VENTRICLE The left ventricle is normal size. There is normal left ventricular wall thickness. The left ventricular function is normal. The left ventricular ejection fraction is within the normal range. There is normal LV segmental wall motion. The left ventricular diastolic function is normal. AORTIC VALVE There is mild aortic regurgitation. There is moderate valvular aortic stenosis. MITRAL VALVE The mitral valve is normal in structure. TRICUSPID VALVE There is moderate tricuspid regurgitation. <Conclusion> Normal LV systolic function. Mid AR. Moderate Aortic stenosis. Mild to moderate TR. Normal chamber size.
[2018-12-19] MEDS: Enoxaparin 80 mg Syringe SC SCH (21:02)
--- NOTE | 2018-12-20 06:53 | CP.PCM.PN ---
Objective - Vital Signs/Intake and Output Vital Signs (last 24 hours): Temp Pulse Resp BP Pulse Ox 98.8 F 89 20 131/70 96 12/20/18 04:16 12/20/18 04:16 12/20/18 04:16 12/20/18 04:16 12/20/18 04:16 Intake and Output: 12/19/18 12/20/18 18:59 06:59 Intake Total 740 Balance 740 - Medications Medications: Current Medications Enoxaparin Sodium (Lovenox) 80 mg SC Q12 [facility] Last Admin: 12/19/18 21:02 Dose: 80 mg Ceftriaxone Sodium 1 gm/ (Sodium Chloride) 100 mls @ 100 mls/hr IVPB DAILY [facility]; Protocol Last Admin: 12/19/18 11:26 Dose: 100 mls/hr Pantoprazole Sodium (Protonix Inj) 40 mg IVP DAILY [facility] Last Admin: 12/19/18 11:26 Dose: 40 mg Rosuvastatin Calcium (Crestor) 10 mg PO HS [facility] Last Admin: 12/19/18 21:02 Dose: 10 mg - Labs Labs: 12/19/18 07:33 12/19/18 07:33 PT 14.4 SECONDS (9.7-12.2) H 12/18/18 19:17 INR 1.3 12/18/18 19:17 APTT 37.0 SECONDS (21-34) H 12/18/18 19:17
[2018-12-20 07:50] VITALS: BP 125/64; TEMP 98.5; O2SAT 99
[2018-12-20 07:59] VITALS: PULSE 85
[2018-12-20 08:20] LABS: BASO % 0.4 % (0.0-2.0); EOS # 0.1 K/uL (0.0-0.7); EOS % 0.8 % (0.0-4.0); HEMOGLOBIN 13.5 g/dL (12.0-18.0); LYMPH # 1.1 K/uL (1.0-4.3); LYMPH % 12.6 % (20.0-40.0); MEAN CELL VOLUME 95.7 fL (80.0-94.0); MEAN CORPUSCULAR HEMOGLOBIN 33.2 pg (27.0-31.0); MEAN CORPUSCULAR HGB CONC 34.6 g/dL (33.0-37.0); MEAN PLATELET VOLUME 10.4 fL (7.2-11.7); MONO # 1.2 K/uL (0.0-0.8); MONO % 12.8 % (0.0-10.0); NEUT # 6.6 K/uL (1.8-7.0); NEUT % 73.4 % (50.0-75.0); RBC 4.07 Mil/uL (4.40-5.90); RED CELL DISTRIBUTION WIDTH 13.2 % (11.5-14.5)
--- NOTE | 2018-12-20 08:24 | CP.PCM.PN ---
Subjective - Date & Time of Evaluation Date of Evaluation: 12/20/18 Time of Evaluation: 08:22 - Subjective Subjective: Surgery: Dr. Wilson Patient feels great this am. Denies abd pain, n/v/f/c. Tolerating HHD last night without inducing similar symptoms prior to admission. Patient evaluated by innovations paraprofessional, found to have severe with high gradients and a fib rate controlled. Patient needing outpatient referral for TAVR and started on anticoagulation for A fib. Patient deemed very high risk for OR. Objective - Vital Signs/Intake and Output Vital Signs (last 24 hours): Temp Pulse Resp BP Pulse Ox 98.5 F 85 20 125/64 99 12/20/18 07:00 12/20/18 07:00 12/20/18 07:00 12/20/18 07:00 12/20/18 07:00 Intake and Output: 12/20/18 12/20/18 06:59 18:59 Intake Total 740 Balance 740 - Medications Medications: Current Medications Enoxaparin Sodium (Lovenox) 80 mg SC Q12 [facility] Last Admin: 12/19/18 21:02 Dose: 80 mg Ceftriaxone Sodium 1 gm/ (Sodium Chloride) 100 mls @ 100 mls/hr IVPB DAILY [facility]; Protocol Last Admin: 12/19/18 11:26 Dose: 100 mls/hr Pantoprazole Sodium (Protonix Inj) 40 mg IVP DAILY [facility] Last Admin: 12/19/18 11:26 Dose: 40 mg Rosuvastatin Calcium (Crestor) 10 mg PO HS [facility] Last Admin: 12/19/18 21:02 Dose: 10 mg - Labs Labs: 12/19/18 07:33 12/19/18 07:33 PT 14.4 SECONDS (9.7-12.2) H 12/18/18 19:17 INR 1.3 12/18/18 19:17 APTT 37.0 SECONDS (21-34) H 12/18/18 19:17 - Constitutional Appears: Non-toxic, No Acute Distress - Head Exam Head Exam: ATRAUMATIC, NORMOCEPHALIC - Eye Exam Eye Exam: EOMI, Normal appearance - ENT Exam ENT Exam: Mucous Membranes Moist - Respiratory Exam Respiratory Exam: NORMAL BREATHING PATTERN. absent: Respiratory Distress - Cardiovascular Exam Cardiovascular Exam: Irregular Rhythm. absent: Tachycardia - GI/Abdominal Exam GI & Abdominal Exam: Soft. absent: Distended, Guarding, Rigid, Tenderness, Rebo und Assessment and Plan - Assessment and Plan (Free Text) Assessment: 78 y/o male w/ symptomatic cholelithiasis, resolved Plan: -clinically no pain and pain not worsened with food intake -US yesterday showed thickened wall and stones, however no fluid and no sonographic Muyrphy's sign ellicited -would recommend cardiac optimization prior to operative intervention for lap ana rosa -patient can f/u in office with Dr. Wilson for elective scheduling of lap ana rosa once cardiac issues addressed -if symptoms return please return to nearest ED for re-evaulation -d/w Dr. Wilson [facility] PGY4
[2018-12-20 08:36] LABS: ALB/GLOB RATIO 1.1 (1.0-2.1); ALBUMIN 3.3 g/dL (3.5-5.0); ALT/SGPT 30 U/L (21-72); AST/SGOT 26 U/L (17-59); BLOOD UREA NITROGEN 24 mg/dL (9-20); CALCIUM 8.6 mg/dl (8.6-10.4); GFR NON-AFRICAN AMERICAN > 60
[2018-12-20] MEDS ORDERED: Potassium Chloride 20 mEq ER Tab PO ONE (09:51)
[2018-12-20] MEDS: Enoxaparin 80 mg Syringe SC SCH (10:45)
--- NOTE | 2018-12-20 15:29 | CP.PCM.DIS ---
<Trent Sharp - Last Filed: 12/20/18 17:06> Provider - Provider Date of Admission: 12/18/18 19:40 Attending physician: Arcelia Castro MD Primary care physician: Dr. Jose Duncan Consults: 12/19/18 03:23 Physician Consult Routine Comment: Consulting Provider: Qasim Wilson Consulting Physician: Qasim Wilson Reason for Consult: possible cholecystitis 12/19/18 04:08 Case Management Referral Routine Comment: Physician Instructions: Reason For Exam: Reason for Referral: Discharge Planning 12/19/18 07:50 Physician Consult Routine Comment: Consulting Provider: Rommel Arevalo Consulting Physician: Rommel Arevalo Reason for Consult: New onset Afib Time Spent in preparation of Discharge (in minutes): 40 Diagnosis - Discharge Diagnosis (1) Aortic stenosis, severe Status: Acute Comment: F/u outpatient with Dr. Shankar (2) Atrial fibrillation Status: Acute Comment: Eliquis 5mg daily, rate controlled, F/u outpatient with Dr. Shankar. (3) Cholecystitis with cholelithiasis Status: Acute Hospital Course - Lab Results Lab Results: Micro Results 12/18/18 22:52 Urine,Clean Catch Urine Culture - Final <10,000 CFU/ML. MULTIPLE SPECIES. PROBABLE CONTAMINATION. 12/18/18 23:01 Blood Blood Culture - Preliminary NO GROWTH AFTER 24 HOURS 12/18/18 23:01 Blood Blood Culture - Preliminary NO GROWTH AFTER 24 HOURS Most Recent Lab Values WBC 9.0 K/uL (4.8-10.8) 12/20/18 08:08 RBC 4.07 Mil/uL (4.40-5.90) L 12/20/18 08:08 Hgb 13.5 g/dL (12.0-18.0) 12/20/18 08:08 Hct 39.0 % (35.0-51.0) 12/20/18 08:08 MCV 95.7 fL (80.0-94.0) H 12/20/18 08:08 MCH 33.2 pg (27.0-31.0) H 12/20/18 08:08 MCHC 34.6 g/dL (33.0-37.0) 12/20/18 08:08 RDW 13.2 % (11.5-14.5) 12/20/18 08:08 Plt Count 196 K/uL (130-400) 12/20/18 08:08 MPV 10.4 fL (7.2-11.7) 12/20/18 08:08 Neut % (Auto) 73.4 % (50.0-75.0) 12/20/18 08:08 Lymph % (Auto) 12.6 % (20.0-40.0) L 12/20/18 08:08 Dickinson % (Auto) 12.8 % (0.0-10.0) H 12/20/18 08:08 Eos % (Auto) 0.8 % (0.0-4.0) 12/20/18 08:08 Baso % (Auto) 0.4 % (0.0-2.0) 12/20/18 08:08 Neut # (Auto) 6.6 K/uL (1.8-7.0) 12/20/18 08:08 Lymph # (Auto) 1.1 K/uL (1.0-4.3) 12/20/18 08:08 Dickinson # (Auto) 1.2 K/uL (0.0-0.8) H 12/20/18 08:08 Eos # (Auto) 0.1 K/uL (0.0-0.7) 12/20/18 08:08 Baso # (Auto) 0.0 K/uL (0.0-0.2) 12/20/18 08:08 Neutrophils % (Manual) 81 % (50-75) H 12/19/18 07:33 Band Neutrophils % 5 % (0-2) H 12/18/18 19:17 Lymphocytes % (Manual) 10 % (20-40) L 12/19/18 07:33 Monocytes % (Manual) 8 % (0-10) 12/19/18 07:33 Eosinophils % (Manual) 1 % (0-4) 12/19/18 07:33 Platelet Estimate Normal (NORMAL) 12/19/18 07:33 Large Platelets Present 12/18/18 19:17 Giant Platelets Present 12/18/18 19:17 Microcytosis (manual) Slight 12/18/18 19:17 Tear Drop Cells Slight 12/18/18 19:17 PT 14.4 SECONDS (9.7-12.2) H 12/18/18 19:17 INR 1.3 12/18/18 19:17 APTT 37.0 SECONDS (21-34) H 12/18/18 19:17 Sodium 140 mmol/L (132-148) 12/20/18 08:08 Potassium 3.3 mmol/L (3.6-5.2) L 12/20/18 08:08 Chloride 101 mmol/L (98-107) 12/20/18 08:08 Carbon Dioxide 27 mmol/L (22-30) 12/20/18 08:08 Anion Gap 15 (10-20) 12/20/18 08:08 BUN 24 mg/dL (9-20) H 12/20/18 08:08 Creatinine 1.0 mg/dL (0.8-1.5) 12/20/18 08:08 Est GFR ( Amer) > 60 12/20/18 08:08 Est GFR (Non-Af Amer) > 60 12/20/18 08:08 POC Glucose (mg/dL) 226 mg/dL (65-110) H 12/20/18 11:26 Random Glucose 124 mg/dL (75-110) H D 12/20/18 08:08 Hemoglobin A1c 5.7 % (4.2-6.5) 12/19/18 07:33 Calcium 8.6 mg/dl (8.6-10.4) 12/20/18 08:08 Phosphorus 3.2 mg/dL (2.5-4.5) 12/20/18 08:08 Magnesium 2.0 mg/dL (1.6-2.3) 12/20/18 08:08 Total Bilirubin 2.2 mg/dL (0.2-1.3) H 12/20/18 08:08 AST 26 U/L (17-59) 12/20/18 08:08 ALT 30 U/L (21-72) 12/20/18 08:08 Alkaline Phosphatase 71 U/L (38-126) 12/20/18 08:08 Total Creatine Kinase 23 U/L (55-170) L 12/19/18 07:33 CK-MB (Mass) 0.90 ng/mL (0.0-3.38) 12/19/18 07:33 Troponin I 0.0220 ng/mL (0.00-0.120) 12/19/18 07:33 Total Protein 6.1 g/dL (6.3-8.3) L 12/20/18 08:08 Albumin 3.3 g/dL (3.5-5.0) L 12/20/18 08:08 Globulin 2.8 gm/dL (2.2-3.9) 12/20/18 08:08 Albumin/Globulin Ratio 1.1 (1.0-2.1) 12/20/18 08:08 Triglycerides 123 mg/dL (0-149) 12/19/18 07:33 Cholesterol 124 mg/dL (0-199) 12/19/18 07:33 LDL Cholesterol Direct 62 mg/dL (0-129) 12/19/18 07:33 HDL Cholesterol 26 mg/dL (30-70) L 12/19/18 07:33 Lipase 18 U/L (23-300) L 12/18/18 19:17 Free T4 1.60 ng/dL (0.78-2.19) 12/19/18 07:33 TSH 3rd Generation 0.61 mIU/L (0.46-4.68) 12/19/18 07:33 Urine Color Yellow (YELLOW) 12/18/18 21:41 Urine Clarity Hazy (Clear) 12/18/18 21:41 Urine pH 5.0 (5.0-8.0) 12/18/18 21:41 Ur Specific [place] 1.020 (1.003-1.030) 12/18/18 21:41 Urine Protein 2+ mg/dL (NEGATIVE) H 12/18/18 21:41 Urine Glucose (UA) Normal mg/dL (Normal) 12/18/18 21:41 Urine Ketones Negative mg/dL (NEGATIVE) 12/18/18 21:41 Urine Blood 2+ (NEGATIVE) H 12/18/18 21:41 Urine Nitrate Negative (NEGATIVE) 12/18/18 21:41 Urine Bilirubin Negative (NEGATIVE) 12/18/18 21:41 Urine Urobilinogen 2.0 mg/dL (0.2-1.0) 12/18/18 21:41 Ur Leukocyte Esterase Neg Isi/uL (Negative) 12/18/18 21:41 Urine WBC (Auto) 3 /hpf (0-5) 12/18/18 21:41 Urine RBC (Auto) 38 /hpf (0-3) H 12/18/18 21:41 Ur Squamous Epith Cells < 1 /hpf (0-5) 12/18/18 21:41 Urine Bacteria Occ (<OCC) H 12/18/18 21:41 Stool Occult Blood Negative (NEGATIVE) 12/20/18 12:40 Blood Type O POSITIVE 12/18/18 19:17 Antibody Screen Negative 12/18/18 19:17 - Hospital Course Hospital Course: HPI: Patient is a 78 year old male who presents for one week history of abdominal pain associated with dark black stools. He states his pain started on Sunday after he didn't eat much the day before on Good Sunday. He states he ate a little bit of yogurt before taking his home medications. He has not been on any recent antibiotics. He developed severe nonradiating abdominal pain rated 9/10 with nausea for which he took Pepto Bismol. His symptoms improved by the end of the next day. He states that since then he has had decreased appetite, without any vomiting. He has been drinking water and Gatorade but only has been taking 1 to 2 spoonfuls of soup. He denies fever, chills, headaches, changes in vision or hearing, sore throat, dizziness. He denies feeling weak or dizzy over the past few days. He now states that he has 2/10 lower abdominal pain without nausea or vomiting. He states his last bowel movement was yesterday at 9pm - dark stool. He denies diarrhea. He denies any urinary symptoms including dysuria, urinary frequency, hematuria. He denies lower extremity pain or swelling. He denies rash, recent travel, sick contacts, weight changes. He was seen at PMD Dr. Jose Duncan's office today who recommended that patient come in for evaluation of possible GI bleed, abdominal pain and cardiac arrhythmia. He has no prior history of cardiac issues before. He denies chest pain, palpitations, shortness of breath. During hospital course, patient was found to have atrial fibrillation and aortic stenosis along with possible cholecystitis. Patient was considered a high risk and due to symptoms of abdominal pain resolving along with no white count and afebrile, only gall bladder wall thickening, no edema around gallbladder, it was elected outpatient cholecystecomty. Patient was started on theraputic lovenox inpatient and outpatient eliquis for afib. Echo revealed normal EF, with sever aortic stenosis. Outpatient follow up with cardiology recommended within 1 week. Above is only a summary of patient stay while hospitalized. See EMR for full details. Below are details provided to patient upon discharge. Patient is stable for discharge by Dr. Castro. Patient should follow up with primary doctor, Dr. Jose Duncan within 5 days. Patient should follow up with Dr. Shankar, business continuity planning director within 1 week for TVAR planning/new onset Afib. Patient should follow up with Dr. Wilson, general surgery within 1 week for elective cholecystectomy. Patient should continue taking atorvastatin 20 mg daily as previously prescribed by primary doctor. Patient should start taking eliquis 5 mg, one tablet, twice daily (prescription will be provided). Patient should return to nearest emergency facility if symptoms including, but not limited to chest pain, SOB, palpitations appear/return. El paciente est estable para el cisco por el Dr. Castro. El paciente debe realizar un seguimiento con el evan hammer, el Dr. Garcia Yaw dentro de los 5 quinn. El paciente debe realizar un seguimiento con el Dr. Shankar, cardilogo, dentro de ingrid semana para la planificacin de TVAR / Afib de nuevo inicio. El paciente debe realizar un seguimiento con el Dr. Wilson, ciruga general dentro de 1 semana para ingrid colecistectoma electiva. El paciente debe continuar tomando atorvastatina 20 mg al da segn lo prescrito previamente por el evan hammer. El paciente debe comenzar a kortney eliquis 5 mg, ingrid tableta, dos veces al da (se le proporcionar ingrid receta). El paciente debe regresar a la instalacin de emergencia ms cercana si los sntomas incluyen, fabrizio no se limitan a dolor en el pecho, SOB, aparecen / regresan palpitaciones. Discharge Exam - Head Exam Head Exam: ATRAUMATIC, NORMOCEPHALIC - Eye Exam Eye Exam: EOMI, Normal appearance - ENT Exam ENT Exam: Mucous Membranes Moist - Respiratory Exam Respiratory Exam: NORMAL BREATHING PATTERN. absent: Rales, Rhonchi, Wheezes - Cardiovascular Exam Cardiovascular Exam: Irregular Rhythm, +S1, +S2, Systolic Murmur Additional comments: holosystolic, conssitent with aortic stenosis, confirmed with echo irregular irregular heart, confirmed to be atrial fibrillation on ekg - GI/Abdominal Exam GI & Abdominal Exam: Normal Bowel Sounds, Soft. absent: Distended, Firm, Guarding - Rectal Exam Rectal Exam: NORMAL INSPECTION. absent: Black Stool Additional comments: stool occult negative x2 no recal masses appreciated - Extremities Exam Additional comments: no pedal edema, no calf tenderness - Back Exam Back exam: absent: CVA tenderness (L), CVA tenderness (R) - Neurological Exam Neurological exam: Alert, Oriented x3 - Psychiatric Exam Psychiatric exam: Normal Affect, Normal Mood - Skin Skin Exam: Dry, Intact, Normal Color, Warm Discharge Plan - Discharge Medications Prescriptions: Apixaban [Eliquis] 5 mg PO BID #60 tab - Follow Up Plan Condition: STABLE Disposition: HOME/ ROUTINE Instructions: Atrial Fibrillation, Aortic Stenosis, Adult (DC), Apixaban, Going Home on Blood Thinners , Cholecystitis (DC) Additional Instructions: Patient is stable for discharge by Dr. Castro. Patient should follow up with primary doctor, Dr. Jose Duncan within 5 days. Patient should follow up with Dr. Shankar, business continuity planning director within 1 week for TVAR planning/new onset Afib. Patient should follow up with Dr. Wilson, general surgery within 1 week for elective cholecystectomy. Patient should continue taking atorvastatin 20 mg daily as previously prescribed by primary doctor. Patient should start taking eliquis 5 mg, one tablet, twice daily (prescription will be provided). Patient should return to nearest emergency facility if symptoms including, but not limited to chest pain, SOB, palpitations appear/return. El paciente est estable para el cisco por el Dr. Castro. El paciente debe realizar un seguimiento con el evan hammer, el Dr. Jose Cantuz dentro de los 5 quinn. El paciente debe realizar un seguimiento con el Dr. Shankar, cardilogo, dentro de ingrid semana para la planificacin de TVAR / Afib de nuevo inicio. El paciente debe realizar un seguimiento con el Dr. Wilson, ciruga general dentro de 1 semana para ingrid colecistectoma electiva. El paciente debe continuar tomando atorvastatina 20 mg al da segn lo prescrito previamente por el mdico hammer. El paciente debe comenzar a kortney eliquis 5 mg, ingrid tableta, dos veces al da (se le proporcionar ingrid receta). El paciente debe regresar a la instalacin de emergencia ms cercana si los sntomas incluyen, fabrizio no se limitan a dolor en el pecho, SOB, aparecen / regresan palpitaciones. Referrals: Qasim Wilson MD [Staff Provider] - Raffi Shankar MD [Staff Provider] - <Arcelia Csatro - Last Filed: 12/24/18 21:51> Provider - Provider Date of Admission: 12/18/18 19:40 Attending physician: Arcelia Castro MD Consults: 12/19/18 03:23 Physician Consult Routine Comment: Consulting Provider: Qasim Wilson Consulting Physician: Qasim Wilson Reason for Consult: possible cholecystitis 12/19/18 04:08 Case Management Referral Routine Comment: Physician Instructions: Reason For Exam: Reason for Referral: Discharge Planning 12/19/18 07:50 Physician Consult Routine Comment: Consulting Provider: Rommel Arevalo Consulting Physician: Rommel Arevalo Reason for Consult: New onset Afib Hospital Course - Lab Results Lab Results: Micro Results 12/18/18 23:01 Blood Blood Culture - Final NO GROWTH AFTER 5 DAYS 12/18/18 23:01 Blood Gram Stain - Final TEST NOT PERFORMED 12/18/18 23:01 Blood Blood Culture - Final NO GROWTH AFTER 5 DAYS 12/18/18 23:01 Blood Gram Stain - Final TEST NOT PERFORMED 12/18/18 22:52 Urine,Clean Catch Urine Culture - Final <10,000 CFU/ML. MULTIPLE SPECIES. PROBABLE CONTAMINATION. Most Recent Lab Values WBC 9.0 K/uL (4.8-10.8) 12/20/18 08:08 RBC 4.07 Mil/uL (4.40-5.90) L 12/20/18 08:08 Hgb 13.5 g/dL (12.0-18.0) 12/20/18 08:08 Hct 39.0 % (35.0-51.0) 12/20/18 08:08 MCV 95.7 fL (80.0-94.0) H 12/20/18 08:08 MCH 33.2 pg (27.0-31.0) H 12/20/18 08:08 MCHC 34.6 g/dL (33.0-37.0) 12/20/18 08:08 RDW 13.2 % (11.5-14.5) 12/20/18 08:08 Plt Count 196 K/uL (130-400) 12/20/18 08:08 MPV 10.4 fL (7.2-11.7) 12/20/18 08:08 Neut % (Auto) 73.4 % (50.0-75.0) 12/20/18 08:08 Lymph % (Auto) 12.6 % (20.0-40.0) L 12/20/18 08:08 Dickinson % (Auto) 12.8 % (0.0-10.0) H 12/20/18 08:08 Eos % (Auto) 0.8 % (0.0-4.0) 12/20/18 08:08 Baso % (Auto) 0.4 % (0.0-2.0) 12/20/18 08:08 Neut # (Auto) 6.6 K/uL (1.8-7.0) 12/20/18 08:08 Lymph # (Auto) 1.1 K/uL (1.0-4.3) 12/20/18 08:08 Dickinson # (Auto) 1.2 K/uL (0.0-0.8) H 12/20/18 08:08 Eos # (Auto) 0.1 K/uL (0.0-0.7) 12/20/18 08:08 Baso # (Auto) 0.0 K/uL (0.0-0.2) 12/20/18 08:08 Neutrophils % (Manual) 81 % (50-75) H 12/19/18 07:33 Band Neutrophils % 5 % (0-2) H 12/18/18 19:17 Lymphocytes % (Manual) 10 % (20-40) L 12/19/18 07:33 Monocytes % (Manual) 8 % (0-10) 12/19/18 07:33 Eosinophils % (Manual) 1 % (0-4) 12/19/18 07:33 Platelet Estimate Normal (NORMAL) 12/19/18 07:33 Large Platelets Present 12/18/18 19:17 Giant Platelets Present 12/18/18 19:17 Microcytosis (manual) Slight 12/18/18 19:17 Tear Drop Cells Slight 12/18/18 19:17 PT 14.4 SECONDS (9.7-12.2) H 12/18/18 19:17 INR 1.3 12/18/18 19:17 APTT 37.0 SECONDS (21-34) H 12/18/18 19:17 Sodium 140 mmol/L (132-148) 12/20/18 08:08 Potassium 3.3 mmol/L (3.6-5.2) L 12/20/18 08:08 Chloride 101 mmol/L (98-107) 12/20/18 08:08 Carbon Dioxide 27 mmol/L (22-30) 12/20/18 08:08 Anion Gap 15 (10-20) 12/20/18 08:08 BUN 24 mg/dL (9-20) H 12/20/18 08:08 Creatinine 1.0 mg/dL (0.8-1.5) 12/20/18 08:08 Est GFR ( Amer) > 60 12/20/18 08:08 Est GFR (Non-Af Amer) > 60 12/20/18 08:08 POC Glucose (mg/dL) 226 mg/dL (65-110) H 12/20/18 11:26 Random Glucose 124 mg/dL (75-110) H D 12/20/18 08:08 Hemoglobin A1c 5.7 % (4.2-6.5) 12/19/18 07:33 Calcium 8.6 mg/dl (8.6-10.4) 12/20/18 08:08 Phosphorus 3.2 mg/dL (2.5-4.5) 12/20/18 08:08 Magnesium 2.0 mg/dL (1.6-2.3) 12/20/18 08:08 Total Bilirubin 2.2 mg/dL (0.2-1.3) H 12/20/18 08:08 AST 26 U/L (17-59) 12/20/18 08:08 ALT 30 U/L (21-72) 12/20/18 08:08 Alkaline Phosphatase 71 U/L (38-126) 12/20/18 08:08 Total Creatine Kinase 23 U/L (55-170) L 12/19/18 07:33 CK-MB (Mass) 0.90 ng/mL (0.0-3.38) 12/19/18 07:33 Troponin I 0.0220 ng/mL (0.00-0.120) 12/19/18 07:33 Total Protein 6.1 g/dL (6.3-8.3) L 12/20/18 08:08 Albumin 3.3 g/dL (3.5-5.0) L 12/20/18 08:08 Globulin 2.8 gm/dL (2.2-3.9) 12/20/18 08:08 Albumin/Globulin Ratio 1.1 (1.0-2.1) 12/20/18 08:08 Triglycerides 123 mg/dL (0-149) 12/19/18 07:33 Cholesterol 124 mg/dL (0-199) 12/19/18 07:33 LDL Cholesterol Direct 62 mg/dL (0-129) 12/19/18 07:33 HDL Cholesterol 26 mg/dL (30-70) L 12/19/18 07:33 Lipase 18 U/L (23-300) L 12/18/18 19:17 Free T4 1.60 ng/dL (0.78-2.19) 12/19/18 07:33 TSH 3rd Generation 0.61 mIU/L (0.46-4.68) 12/19/18 07:33 Urine Color Yellow (YELLOW) 12/18/18 21:41 Urine Clarity Hazy (Clear) 12/18/18 21:41 Urine pH 5.0 (5.0-8.0) 12/18/18 21:41 Ur Specific [place] 1.020 (1.003-1.030) 12/18/18 21:41 Urine Protein 2+ mg/dL (NEGATIVE) H 12/18/18 21:41 Urine Glucose (UA) Normal mg/dL (Normal) 12/18/18 21:41 Urine Ketones Negative mg/dL (NEGATIVE) 12/18/18 21:41 Urine Blood 2+ (NEGATIVE) H 12/18/18 21:41 Urine Nitrate Negative (NEGATIVE) 12/18/18 21:41 Urine Bilirubin Negative (NEGATIVE) 12/18/18 21:41 Urine Urobilinogen 2.0 mg/dL (0.2-1.0) 12/18/18 21:41 Ur Leukocyte Esterase Neg Isi/uL (Negative) 12/18/18 21:41 Urine WBC (Auto) 3 /hpf (0-5) 12/18/18 21:41 Urine RBC (Auto) 38 /hpf (0-3) H 12/18/18 21:41 Ur Squamous Epith Cells < 1 /hpf (0-5) 12/18/18 21:41 Urine Bacteria Occ (<OCC) H 12/18/18 21:41 Stool Occult Blood Negative (NEGATIVE) 12/20/18 12:40 Blood Type O POSITIVE 12/18/18 19:17 Antibody Screen Negative 12/18/18 19:17 Attending/Attestation - Attestation I have personally seen and examined this patient.: Yes I have fully participated in the care of the patient.: Yes I have reviewed all pertinent clinical information, including history, physical exam and plan: Yes
== END 2018-12-20 16:36 | disposition home or self-care (01) ==
LOC: C.ER 18:05 → C.6T 19:40
PROVIDERS: ADMIT Internal Medicine; ATTEND Internal Medicine
DX: I35.0 Nonrheumatic aortic (valve) stenosis (principal); E78.5 Hyperlipidemia, unspecified; E86.0 Dehydration; I48.91 Unspecified atrial fibrillation; Z79.01 Long term (current) use of anticoagulants; K80.10 Calculus of gallbladder with chronic cholecystitis without obstruction; Z87.891 Personal history of nicotine dependence
CPT/HCPCS: 36415; 71045; 74176; 76705; 80053; 80061; 81001; 82948; 83036; 83690; 83735; 84100; 84439; 84443; 84484; 85025; 85610; 85730; 86850; 86900; 87040; 87086; 93005; 93306; 96361; 96365; 96366; 96372; 96375; 97116; 97161; 97165; 97530; 99285; C9113; G0328; G0378; G8978; G8979; G8980; G8987; G8988; G8989; J0696; J1650; J7030; J7120

== ENCOUNTER 2018-12-22 04:56 | Inpatient (IN) | payer OTHER, MEDICARE ==
[2018-12-22] MEDS ORDERED: Aluminum Hydroxide/Magnesium Hydroxide Susp (30 mL) PO STA (05:33)
[2018-12-22] MEDS ORDERED: Aluminum Hydroxide/Magnesium Hydroxide Susp (30 mL) ONE (05:43)
--- NOTE | 2018-12-22 05:56 | C.PDOC ---
History Of Present Illness 78 year old male presents to the ED c/o RUQ abdominal pain since 19:00. Patient reports he was recently discharged on 12/20, he was admitted for gallstones. Patient was not able to have surgery done due to heart problems. Patient is scheduled for a composite layup worker follow up in one week and Dr. Wilson as well in one week. Patient was started on Eliquis 5 mg for AFiv. Patient denies fever, chills, CP, SOB, palpitations, nausea, vomit, diarrhea, rash, black/tarry stools. Patient reports he was not discharged with any pain medications. Time Seen by Provider: 12/22/18 05:20 Chief Complaint (Nursing): Abdominal Pain History Per: Patient History/Exam Limitations: no limitations Onset/Duration Of Symptoms: Hrs (19:00) Current Symptoms Are (Timing): Still Present Severity: Moderate Location Of Pain/Discomfort: RUQ Radiation Of Pain To:: None Quality Of Discomfort: "Pain" Associated Symptoms: denies: Nausea, Vomiting, Diarrhea, Urinary Symptoms Recent travel outside of the [place]: No Additional History Per: Patient Past Medical History Reviewed: Historical Data, Nursing Documentation, Vital Signs Vital Signs: Last Vital Signs Temp 98.3 F 12/22/18 05:13 Pulse 88 12/22/18 05:13 Resp 20 12/22/18 05:13 BP 143/88 12/22/18 05:13 Pulse Ox 97 12/22/18 05:13 - Medical History PMH: No Chronic Diseases Surgical History: No Surg Hx Family History: States: Unknown Family Hx - Social History Hx Alcohol Use: No Hx Substance Use: No - Immunization History Hx Tetanus Toxoid Vaccination: No Hx Influenza Vaccination: No Hx Pneumococcal Vaccination: No Review Of Systems Constitutional: Negative for: Fever, Chills Cardiovascular: Negative for: Chest Pain, Palpitations Respiratory: Negative for: Shortness of Breath Gastrointestinal: Positive for: Abdominal Pain. Negative for: Nausea, Vomiting, Diarrhea Skin: Negative for: Rash Neurological: Negative for: Weakness, Numbness, Headache, Dizziness Physical Exam - Physical Exam Appears: Non-toxic, In Acute Distress Skin: Normal Color, Warm, Dry Head: Atraumatic, Normacephalic Eye(s): bilateral: Normal Inspection Oral Mucosa: Moist Neck: Normal ROM, Supple Chest: Symmetrical Cardiovascular: Rhythm Regular Respiratory: Normal Breath Sounds, No Rales, No Rhonchi, No Wheezing Gastrointestinal/Abdominal: Soft, Tenderness (RUQ/epigastric), No Guarding, No Rebound Back: No CVA Tenderness Extremity: Normal ROM, No Tenderness, No Swelling Neurological/Psych: Oriented x3, Normal Speech, Normal Cognition Gait: Steady ED Course And Treatment - Laboratory Results Result Diagrams: 12/22/18 06:05 12/22/18 06:05 ECG: Interpreted By Me, Viewed By Me ECG Rhythm: Sinus Rhythm Rate From EC (BPM) O2 Sat by Pulse Oximetry: 97 (ON RA) Pulse Ox Interpretation: Normal Progress Note: Plan: - Labs. - Maalox 30 ml PO. - Pepcid 20 mg IVP. - UA Disposition Counseled Patient/Family Regarding: Diagnosis - Disposition Disposition Time: 07:07 Condition: STABLE Forms: [facility] (Pashto) - Clinical Impression Clinical Impression: Abdominal pain, Chest pain - PA / PREMISES TECHNICIAN / Resident Statement MD/DO has reviewed & agrees with the documentation as recorded. - Scribe Statement The provider has reviewed the documentation as recorded by the Scribe Braden Sotelo All medical record entries made by the Scribe were at my direction and personally dictated by me. I have reviewed the chart and agree that the record accurately reflects my personal performance of the history, physical exam, m edical decision making, and the department course for this patient. I have also personally directed, reviewed, and agree with the discharge instructions and disposition. Physician Patient Turnover Patient Signed Over To: Brittany Mahmood Handoff Comments: Pending US, labs, troponin, surg consult, dispo
[2018-12-22 06:10] LABS: BASO # 0.1 K/uL (0.0-0.2); BASO % 0.3 % (0.0-2.0); EOS % 0.1 % (0.0-4.0); HEMOGLOBIN 12.5 g/dL (12.0-18.0); LYMPH # 0.8 K/uL (1.0-4.3); LYMPH % 4.9 % (20.0-40.0); MEAN CELL VOLUME 95.4 fL (80.0-94.0); MEAN CORPUSCULAR HEMOGLOBIN 31.6 pg (27.0-31.0); MEAN CORPUSCULAR HGB CONC 33.1 g/dL (33.0-37.0); MEAN PLATELET VOLUME 9.7 fL (7.2-11.7); MONO # 1.1 K/uL (0.0-0.8); NEUT # 14.3 K/uL (1.8-7.0); NEUT % 87.7 % (50.0-75.0); PLATELET COUNT 239 K/uL (130-400); RBC 3.96 Mil/uL (4.40-5.90); RED CELL DISTRIBUTION WIDTH 13.1 % (11.5-14.5); WHITE BLOOD COUNT 16.4 K/uL (4.8-10.8)
[2018-12-22 06:16] LABS: INR 1.5; PROTHROMBIN TIME 16.4 SECONDS (9.7-12.2)
[2018-12-22 06:20] LABS: ALB/GLOB RATIO 1.2 (1.0-2.1); ALBUMIN 3.6 g/dL (3.5-5.0); ALT/SGPT 26 U/L (21-72); AST/SGOT 25 U/L (17-59); BLOOD UREA NITROGEN 14 mg/dL (9-20); GFR NON-AFRICAN AMERICAN > 60; LIPASE 37 U/L (23-300)
[2018-12-22 06:46] LABS: GRANULAR CAST 19 /lpf (0-1); SQUAMOUS EPITHIAL 1 /hpf (0-5); URINE BACTERIA RARE (<OCC); URINE BILIRUBIN NEGATIVE (NEGATIVE); URINE BLOOD 2+ (NEGATIVE); URINE CALCIUM OXALATE CRYSTALS OCC /hpf (<OCC); URINE CLARITY Hazy (Clear); URINE COLOR Amber (YELLOW); URINE GLUCOSE (UA) NORMAL (Normal); URINE LEUKOCYTE ESTERASE NEG Leu/uL (Negative); URINE PROTEIN 2+ mg/dL (NEGATIVE)
[2018-12-22] MEDS ORDERED: Morphine 4 MG/ML VIAL ONE (07:55)
[2018-12-22 09:11] LABS: EOSINOPHIL 1 % (0-4); LYMPHOCYTE 3 % (20-40); MONOCYTE 8 % (0-10); NEUTROPHIL 88 % (50-75); TOTAL CELLS COUNTED 100
[2018-12-22 09:12] LABS: PLATELET ESTIMATE NORMAL (NORMAL)
[2018-12-22 09:13] LABS: LARGE PLATELETS PRESENT
--- NOTE | 2018-12-22 09:27 | US ---
Date of service: 12/22/2018 HISTORY: RUQ pain COMPARISON: None. TECHNIQUE: Sonographic evaluation of the right upper quadrant of the abdomen. FINDINGS: LIVER: Measures 15.3 cm in length. Diffusely increased echogenicity of the liver parenchyma. Consistent with fatty infiltration. Smooth contour. No mass. No intrahepatic biliary ductal dilatation. GALLBLADDER: Cholelithiasis. Sludge. Thickened wall up to 5 mm. No pericholecystic fluid. Negative sonographic Marion sign. COMMON BILE DUCT: Measures 5 mm. No stones. No dilatation. PANCREAS: Unremarkable as visualized. No mass. No ductal dilatation. RIGHT KIDNEY: Measures 9.5 cm in length. Normal echogenicity. Mid to lower pole cortical cyst, 1.5 cm. No solid mass. No calculus or hydronephrosis. AORTA: No aneurysmal dilatation. IVC: Unremarkable. OTHER FINDINGS: None . IMPRESSION: Fatty infiltration of the liver. Thickened gallbladder wall with cholelithiasis and sludge. Negative sonographic Marion sign. Findings equivocal for cholecystitis.
[2018-12-22] MEDS ORDERED: Piperacillin/Tazobact 3.375 GM in Sodium Chloride 100 ML IVPB STA (09:31)
[2018-12-22] MEDS: Sodium Chloride 0.9% 1,000 ML IV SCH (09:38)
[2018-12-22] MEDS ORDERED: Piperacillin/Tazobact 3.375 gm 100 ML IVPB ONE (09:45)
--- NOTE | 2018-12-22 10:05 | CP.PCM.CON ---
History of Present Illness - History of Present Illness History of Present Illness: Surgery: Dr. Wilson Reason for consult: abdominal pain, poss cholecystitis 78 M recently discharged for abdominal pain, possible cholecystitis. On recent admission found to have new onset Afib, rate controlled, and severe aortic sten osis referred for outpatient TAVR and started on Eliquis. Patient abdominal pain completely resolved at discharge recently and was tolerating diet w/o provoking of pain however returns to ED with similar symptoms as before. He reports the pain is mainly epigastric. He denies radiation of the pain to other areas of the abdomen. Denies n/v/f/c. Per ER provider, patient required 8mg of morphine for p ain to be relieved. PMD: Dr. Jose Duncan PMH: Hyperlipidemia, A fib, severe aortic valve stenosis, cholelithiasis PSH: denies All: NKDA Social: former tobacco use, + social ETOH use, denies illicit drug use Review of Systems - Constitutional Constitutional: absent: Anorexia, Chills, Fever - EENT Eyes: absent: Blurred Vision, Change in Vision Nose/Mouth/Throat: absent: Nasal Congestion, Nose Pain - Cardiovascular Cardiovascular: absent: Chest Pain, Dyspnea - Respiratory Respiratory: absent: Cough, Dyspnea - Gastrointestinal Gastrointestinal: Abdominal Pain, Cramping. absent: Coffee Ground Emesis, Constipation, Diarrhea, Hematemesis, Nausea, Vomiting - Genitourinary Genitourinary: absent: Hematuria, Pyuria - Musculoskeletal Musculoskeletal: absent: Joint Swelling, Muscle Weakness - Integumentary Integumentary: absent: New Lesions, Rash - Neurological Neurological: absent: Dizziness, Numbness - Psychiatric Psychiatric: absent: Confusion, Depression - Endocrine Endocrine: absent: Polydipsia, Polyphagia - Hematologic/Lymphatic Hematologic: absent: Easy Bleeding, Easy Bruising Past Patient History - Infectious Disease Hx of Infectious Diseases: None - Past Social History Smoking Status: Never Smoked - PSYCHIATRIC Hx Substance Use: No - SURGICAL HISTORY Hx Surgeries: No - ANESTHESIA Hx Anesthesia: Yes Hx Anesthesia Reactions: No Hx Malignant Hyperthermia: No Meds Allergies/Adverse Reactions: Allergies Allergy/AdvReac Type Severity Reaction Status Date / Time No Known Allergies Allergy Verified 12/18/18 18:22 - Medications Medications: Current Medications Sodium Chloride (Sodium Chloride 0.9%) 1,000 mls @ 50 mls/hr IV .Q20H SHILOH Last Admin: 12/22/18 09:38 Dose: 50 mls/hr Physical Exam - Constitutional Appears: Non-toxic, No Acute Distress - Head Exam Head Exam: ATRAUMATIC, NORMOCEPHALIC - Eye Exam Eye Exam: EOMI, Normal appearance - ENT Exam ENT Exam: Mucous Membranes Moist - Respiratory Exam Respiratory Exam: NORMAL BREATHING PATTERN. absent: Respiratory Distress - Cardiovascular Exam Cardiovascular Exam: Irregular Rhythm. absent: Tachycardia - GI/Abdominal Exam GI & Abdominal Exam: Soft, Tenderness (epigastric, negative Marion's sign ). absent: Distended, Guarding, Rebound, Rigid - Extremities Exam Extremities exam: Positive for: normal inspection. Negative for: calf tenderness - Neurological Exam Neurological exam: Alert, Oriented x3 - Psychiatric Exam Psychiatric exam: Normal Affect, Normal Mood - Skin Skin Exam: Dry, Warm Results - Vital Signs Recent Vital Signs: Last Vital Signs Temp 98.3 F 12/22/18 05:13 Pulse 91 H 12/22/18 09:38 Resp 18 12/22/18 09:38 BP 168/79 H 12/22/18 09:38 Pulse Ox 99 12/22/18 09:38 - Labs Result Diagrams: 12/22/18 06:05 12/22/18 06:05 Labs: Laboratory Results - last 24 hr 12/22/18 12/22/18 12/22/18 06:04 06:04 06:05 WBC 16.4 H D RBC 3.96 L Hgb 12.5 Hct 37.8 MCV 95.4 H MCH 31.6 H MCHC 33.1 RDW 13.1 Plt Count 239 MPV 9.7 Neut % (Auto) 87.7 H Lymph % (Auto) 4.9 L [place] % (Auto) 7.0 Eos % (Auto) 0.1 Baso % (Auto) 0.3 Neut # (Auto) 14.3 H Lymph # (Auto) 0.8 L [place] # (Auto) 1.1 H Eos # (Auto) 0.0 Baso # (Auto) 0.1 Neutrophils % (Manual) 88 H Lymphocytes % (Manual) 3 L Monocytes % (Manual) 8 Eosinophils % (Manual) 1 Platelet Estimate Normal Large Platelets Present RBC Morphology Normal PT 16.4 H INR 1.5 APTT 44.0 H Sodium Potassium Chloride Carbon Dioxide Anion Gap BUN Creatinine Est GFR ( Amer) Est GFR (Non-Af Amer) Random Glucose Calcium Total Bilirubin AST ALT Alkaline Phosphatase Total Protein Albumin Globulin Albumin/Globulin Ratio Lipase Urine Color Jamee Urine Clarity Hazy Urine pH 5.0 Ur Specific [place] 1.026 Urine Protein 2+ H Urine Glucose (UA) Normal Urine Ketones Trace Urine Blood 2+ H Urine Nitrate Negative Urine Bilirubin Negative Urine Urobilinogen 2.0 Ur Leukocyte Esterase Neg Urine WBC (Auto) 4 Urine RBC (Auto) 21 H Ur Squamous Epith Cells 1 Calcium Oxalate Crystal Occ H Urine Bacteria Rare Hyaline Casts 6-10 H Granular Casts (Auto) 12/22/18 06:05 WBC RBC Hgb Hct MCV MCH MCHC RDW Plt Count MPV Neut % (Auto) Lymph % (Auto) [place] % (Auto) Eos % (Auto) Baso % (Auto) Neut # (Auto) Lymph # (Auto) [place] # (Auto) Eos # (Auto) Baso # (Auto) Neutrophils % (Manual) Lymphocytes % (Manual) Monocytes % (Manual) Eosinophils % (Manual) Platelet Estimate Large Platelets RBC Morphology PT INR APTT Sodium 138 Potassium 3.9 Chloride 99 Carbon Dioxide 28 Anion Gap 15 BUN 14 Creatinine 0.8 Est GFR ( Amer) > 60 Est GFR (Non-Af Amer) > 60 Random Glucose 174 H D Calcium 9.0 Total Bilirubin 1.9 H AST 25 ALT 26 Alkaline Phosphatase 67 Total Protein 6.6 Albumin 3.6 Globulin 2.9 Albumin/Globulin Ratio 1.2 Lipase 37 Urine Color Urine Clarity Urine pH Ur Specific [place] Urine Protein Urine Glucose (UA) Urine Ketones Urine Blood Urine Nitrate Urine Bilirubin Urine Urobilinogen Ur Leukocyte Esterase Urine WBC (Auto) Urine RBC (Auto) Ur Squamous Epith Cells Calcium Oxalate Crystal Urine Bacteria Hyaline Casts Granular Casts (Auto) - Imaging and Cardiology US - abdomen Status: Image reviewed by me, Report reviewed by me Additional comment: U/S w/o pericholecystic fluid. +wall thickening and stones as prior US Assessment & Plan - Assessment and Plan (Free Text) Assessment: 78 y/o male w/ recurrent epigastric abdominal, possible cholecystitis Plan: -u/s findings similar to prior study -ensure pain is not cardiac in nature, rec cardiac monitoring and eval by primary \ -WBC elevated - cont abx -NPO -rec HIDA scan to evaluate for acute cholecystitis, if positive rec IR ana rosa tube insertion. With new cardiac diagnoses, patient high risk for OR and will need valve repair/cardiac optimization prior to cholecystectomy. -hold eliquis if possible for IR intervention if necessary -d/w Dr. Katie Cali PGY4
--- NOTE | 2018-12-22 12:32 | CP.PCM.HP ---
<Maria M Alexander - Last Filed: 12/22/18 16:33> History of Present Illness - History of Present Illness History of Present Illness: PGY-1 Maria M Alexander D.O. H&P for Dr. Castro's service: forestry consultant #[id number] Patient is a 78 yo male with new onset Afib, severe aortic stenosis, and HLD who presents with R-sided lower rib pain. Patient was just hospitalized with chest and abdominal pain during which he was found to have Afib and severe . He was started on Eliquis. Additionally, patient had some evidence for cholecystits. Patient was deemed high cardiac risk for surgery, and patient's abdominal symptoms resolved, so patient was discharged. Surgery recommended possible cholecystectomy in the future after patient has valvular surgery (ie. TAVR). Patient states that he felt well after leaving the hospital on Sunday. He says that he started to experience pain yesterday around 7PM. He points to the pain, and it is located on the R-side of his lower chest/abdomen. He has increased pain with palpation. Denies pain with deep inspiration or cough. Denies injury. He says the pain is constant. He says the nature of the pain feels similar to that of last week; however, it is in a new location (pain was lower abdomen prior). He says he has not eaten or taken meds since yesterday morning; however, he says this is just due to pain, not with any associated pain with eating or nausea or vomiting. Patient rates the pain severity 5/10. He only tried rest to relieve the pain. Denies palpitations, dysphagia/odynophagia, SOB. PMH: severe aortic stenosis, Afib, HLD PSH: denies Meds: Eliquis 5 mg PO BID, Lipitor 20 mg PO QHS All: NKA FH: mother (76)- of CVA, father (83)- of CVA SH: works at [employer], quit smoking in 1983 (smoked 1.5 ppd), one alcoholic drink every 6 months, denies illicit drugs PMD: [facility] Cardio: [facility] proxy: sister Irais Monsivais [phone] Code status: full code Present on Admission - Present on Admission Any Indicators Present on Admission: No History of DVT/PE: No History of Uncontrolled Diabetes: No Urinary Catheter: No Decubitus Ulcer Present: No History Surgical Site Infection Following: None Review of Systems - Constitutional Constitutional: absent: Chills, Fever, Weakness - EENT Eyes: absent: Change in Vision Ears: absent: Decreased Hearing, Tinnitus Nose/Mouth/Throat: absent: Nasal Congestion, Dysphagia, Odynophagia, Sore Throat - Cardiovascular Cardiovascular: Chest Pain at Rest. absent: Diaphoresis, Palpitations - Respiratory Respiratory: absent: Cough, Dyspnea, Pain on Inspiration, Pain with Coughing - Gastrointestinal Gastrointestinal: absent: Bloating, Constipation, Diarrhea, Nausea, Vomiting - Genitourinary Genitourinary: absent: Dysuria, Hematuria - Musculoskeletal Musculoskeletal: absent: Arthralgias, Numbness, Tingling - Integumentary Integumentary: absent: Lesions, Pruritus, Rash - Neurological Neurological: absent: Dizziness, Focal Weakness, Headaches - Psychiatric Psychiatric: absent: Anxiety, Depression - Endocrine Endocrine: absent: Fatigue, Palpitations - Hematologic/Lymphatic Hematologic: absent: Easy Bleeding, Easy Bruising, Lymphadenopathy Past Patient History - Infectious Disease Hx of Infectious Diseases: None - Tetanus Immunizations Tetanus Immunization: Unknown - Past Medical History & Family History Past Medical History?: Yes Pertinent Family History: mother and father- CVA - Past Social History Smoking Status: Former Smoker Chewing Tobacco Use: No Cigar Use: No Alcohol: Occasional Drugs: Denies - PSYCHIATRIC Hx Substance Use: No - SURGICAL HISTORY Hx Surgeries: No - ANESTHESIA Hx Anesthesia: Yes Hx Anesthesia Reactions: No Hx Malignant Hyperthermia: No Meds Allergies/Adverse Reactions: Allergies Allergy/AdvReac Type Severity Reaction Status Date / Time No Known Allergies Allergy Verified 12/18/18 18:22 Physical Exam - Constitutional Appears: Non-toxic, No Acute Distress - Head Exam Head Exam: ATRAUMATIC, NORMAL INSPECTION - Eye Exam Eye Exam: EOMI, Normal appearance, PERRL - ENT Exam ENT Exam: Mucous Membranes Moist - Neck Exam Neck exam: Positive for: Normal Inspection. Negative for: Lymphadenopathy, Tenderness - Respiratory Exam Respiratory Exam: Clear to Auscultation Bilateral, NORMAL BREATHING PATTERN. absent: Respiratory Distress - Cardiovascular Exam Cardiovascular Exam: Irregular Rhythm, +S1, +S2, Systolic Murmur (harsh systolic murmur 4/6). absent: Bradycardia, Tachycardia - GI/Abdominal Exam GI & Abdominal Exam: Normal Bowel Sounds, Soft. absent: Distended, Guarding, Rebound, Tenderness Additional comments: negative Marion's sign - Extremities Exam Extremities exam: Positive for: normal inspection - Back Exam Back exam: NORMAL INSPECTION - Neurological Exam Neurological exam: Alert, CN II-XII Intact, Oriented x3 - Psychiatric Exam Psychiatric exam: Normal Affect, Normal Mood - Skin Skin Exam: Dry, Normal Color, Warm Results - Vital Signs Recent Vital Signs: Last Vital Signs Temp 98.3 F 12/22/18 05:13 Pulse 92 H 12/22/18 10:42 Resp 18 12/22/18 10:42 BP 148/73 12/22/18 10:42 Pulse Ox 99 12/22/18 10:42 - Labs Result Diagrams: 12/22/18 06:05 12/22/18 06:05 Labs: Laboratory Results - last 24 hr 12/22/18 12/22/18 12/22/18 06:04 06:04 06:05 WBC 16.4 H D RBC 3.96 L Hgb 12.5 Hct 37.8 MCV 95.4 H MCH 31.6 H MCHC 33.1 RDW 13.1 Plt Count 239 MPV 9.7 Neut % (Auto) 87.7 H Lymph % (Auto) 4.9 L [place] % (Auto) 7.0 Eos % (Auto) 0.1 Baso % (Auto) 0.3 Neut # (Auto) 14.3 H Lymph # (Auto) 0.8 L [place] # (Auto) 1.1 H Eos # (Auto) 0.0 Baso # (Auto) 0.1 Neutrophils % (Manual) 88 H Lymphocytes % (Manual) 3 L Monocytes % (Manual) 8 Eosinophils % (Manual) 1 Platelet Estimate Normal Large Platelets Present RBC Morphology Normal PT 16.4 H INR 1.5 APTT 44.0 H Sodium Potassium Chloride Carbon Dioxide Anion Gap BUN Creatinine Est GFR ( Amer) Est GFR (Non-Af Amer) Random Glucose Calcium Total Bilirubin AST ALT Alkaline Phosphatase Total Protein Albumin Globulin Albumin/Globulin Ratio Lipase Urine Color Jamee Urine Clarity Hazy Urine pH 5.0 Ur Specific [place] 1.026 Urine Protein 2+ H Urine Glucose (UA) Normal Urine Ketones Trace Urine Blood 2+ H Urine Nitrate Negative Urine Bilirubin Negative Urine Urobilinogen 2.0 Ur Leukocyte Esterase Neg Urine WBC (Auto) 4 Urine RBC (Auto) 21 H Ur Squamous Epith Cells 1 Calcium Oxalate Crystal Occ H Urine Bacteria Rare Hyaline Casts 6-10 H Granular Casts (Auto) 12/22/18 06:05 WBC RBC Hgb Hct MCV MCH MCHC RDW Plt Count MPV Neut % (Auto) Lymph % (Auto) [place] % (Auto) Eos % (Auto) Baso % (Auto) Neut # (Auto) Lymph # (Auto) [place] # (Auto) Eos # (Auto) Baso # (Auto) Neutrophils % (Manual) Lymphocytes % (Manual) Monocytes % (Manual) Eosinophils % (Manual) Platelet Estimate Large Platelets RBC Morphology PT INR APTT Sodium 138 Potassium 3.9 Chloride 99 Carbon Dioxide 28 Anion Gap 15 BUN 14 Creatinine 0.8 Est GFR ( Amer) > 60 Est GFR (Non-Af Amer) > 60 Random Glucose 174 H D Calcium 9.0 Total Bilirubin 1.9 H AST 25 ALT 26 Alkaline Phosphatase 67 Total Protein 6.6 Albumin 3.6 Globulin 2.9 Albumin/Globulin Ratio 1.2 Lipase 37 Urine Color Urine Clarity Urine pH Ur Specific [place] Urine Protein Urine Glucose (UA) Urine Ketones Urine Blood Urine Nitrate Urine Bilirubin Urine Urobilinogen Ur Leukocyte Esterase Urine WBC (Auto) Urine RBC (Auto) Ur Squamous Epith Cells Calcium Oxalate Crystal Urine Bacteria Hyaline Casts Granular Casts (Auto) Assessment & Plan - Assessment and Plan (Free Text) Assessment: Patient is a 78 yo male with new onset Afib, severe aortic stenosis, and HLD who presents with R-sided lower rib pain. Patient recently hospitalized with Afib, sever aortic stenosis, and possible cholecystitis. Plan: Costochondritis, acute - Warm compress - Tylenol 650 mg PO Q6H PRN Possible cholecystitis - CT A/P done on last admission (12/18/18): Prominently distended gallbladder with associated sludge and calculi as well as prominent gallbladder wall thickening, edema, and pericholecystic fluid. These findings are concerning for acute cholecystitis. - Abd US: Fatty infiltration of the liver. Thickened gallbladder wall with cholelithiasis and sludge. Negative sonographic Marion sign. Findings equivocal for cholecystitis. - HIDA: negative - Cardio noted high risk for cosme-operative complications - Surgery consulted (Arago) Atrial fibrillation - Currently rate controlled - Eliquis 5 mg PO BID- HOLD Severe aortic stenosis - Echo done last admission on 12/18/18 - Cardio rec outpatient follow-up for TAVR Hyperlipidemia, chronic - Crestor 10 mg PO QHS Ppx: VTE: SCDs, Eliquis 5 mg PO BID- HOLD GI: not indicated Diet: Clear liquids Code status: full code Dispo: f/u surg recs. Discharge with outpatient f/u if no intervention. Case discussed with attending, Dr. Lomax. <Arcelia Castro - Last Filed: 12/24/18 21:50> Results - Vital Signs Recent Vital Signs: Last Vital Signs Temp 99.4 F 12/23/18 08:28 Pulse 84 12/23/18 08:28 Resp 20 12/23/18 08:28 BP 116/58 L 12/23/18 08:28 Pulse Ox 97 12/23/18 08:28 - Labs Result Diagrams: 12/24/18 06:28 12/24/18 06:28 Labs: Laboratory Results - last 24 hr 12/23/18 12/23/18 08:42 08:42 WBC 13.9 H RBC 3.94 L Hgb 12.9 Hct 37.6 MCV 95.4 H MCH 32.7 H MCHC 34.2 RDW 13.1 Plt Count 263 MPV 9.5 Neut % (Auto) 80.7 H Lymph % (Auto) 9.2 L [place] % (Auto) 9.2 Eos % (Auto) 0.3 Baso % (Auto) 0.6 Neut # (Auto) 11.2 H Lymph # (Auto) 1.3 [place] # (Auto) 1.3 H Eos # (Auto) 0.0 Baso # (Auto) 0.1 Sodium 136 Potassium 3.8 Chloride 98 Carbon Dioxide 30 Anion Gap 12 BUN 10 Creatinine 0.8 Est GFR ( Amer) > 60 Est GFR (Non-Af Amer) > 60 Random Glucose 111 H D Calcium 8.6 Phosphorus 2.9 Magnesium 1.9 Total Bilirubin 1.4 H AST 79 H D ALT 52 Alkaline Phosphatase 69 Total Protein 6.2 L Albumin 3.3 L Globulin 2.9 Albumin/Globulin Ratio 1.2 Attending/Attestation - Attestation I have personally seen and examined this patient.: Yes I have fully participated in the care of the patient.: Yes I have reviewed all pertinent clinical information: Yes Notes (Text): seen and examined by me with the resident in [place]. Came for abdominal pain,Patient was point that his pain is over right lower ribs. Constant pain ,not related to his meals,Has tenderness consistent with costochondritis than cholecytitis on exam. we will follow HIDA scan and surgery recommendation. Patient was seen by petroleum production engineer last week. Has severe and high risk pt for surgery
[2018-12-22 14:44] VITALS: RESP 20
[2018-12-22] MEDS ORDERED: Lactated Ringer's 500 ML IV ONE (16:30)
--- NOTE | 2018-12-22 16:37 | NM ---
Date of service: 12/22/2018 PROCEDURE: Nuclear Medicine Hepatobiliary Scan HISTORY: ruq pain with gallstones COMPARISON: None available. TECHNIQUE: 4.8 mCi of technetium 99m Mebrofenin was administered intravenously. Planar images of the abdomen were obtained at 5 min intervals to 60 mins. Delayed images were also obtained. FINDINGS: LIVER: Timely and homogenous uptake. COMMON BILE DUCT: identified at 20 mins. GALLBLADDER: Not demonstrated SMALL BOWEL: Identified at 25 mins. IMPRESSION: Non filling of gallbladder consistent with cystic duct obstruction/cholecystitis. No additional abnormality.
--- NOTE | 2018-12-23 07:47 | CP.PCM.PN ---
<Sebas Vivas - Last Filed: 12/23/18 11:44> Subjective - Date & Time of Evaluation Date of Evaluation: 12/23/18 Time of Evaluation: 07:47 - Subjective Subjective: PGY-1 Medicine Progress Note for Dr. Mercado Patient seen and examined at bedside this AM. No acute overnight events reported, no acute somatic complaints. Patient denies any abdominal pain this AM. No n/v/d/c. 12 pt ROS reviewed and otherwise negative. Objective - Vital Signs/Intake and Output Vital Signs (last 24 hours): Temp Pulse Resp BP Pulse Ox 99.4 F 93 H 20 131/72 100 12/22/18 23:37 12/22/18 23:37 12/22/18 23:37 12/22/18 23:37 12/22/18 23:37 Intake and Output: 12/23/18 12/23/18 06:59 18:59 Intake Total 1320 Balance 1320 - Medications Medications: Current Medications Acetaminophen (Tylenol 325mg Tab) 650 mg PO Q6 PRN PRN Reason: Pain, moderate (4-7) Sodium Chloride (Sodium Chloride 0.9%) 1,000 mls @ 50 mls/hr IV .Q20H SHILOH Last Admin: 12/22/18 09:38 Dose: 50 mls/hr Rosuvastatin Calcium (Crestor) 10 mg PO HS SHILOH - Labs Labs: 12/22/18 06:05 12/22/18 06:05 PT 16.4 SECONDS (9.7-12.2) H 12/22/18 06:04 INR 1.5 12/22/18 06:04 APTT 44.0 SECONDS (21-34) H 12/22/18 06:04 - Constitutional Appears: Non-toxic, No Acute Distress - Head Exam Head Exam: ATRAUMATIC, NORMAL INSPECTION, NORMOCEPHALIC - Eye Exam Eye Exam: EOMI, Normal appearance, PERRL Pupil Exam: NORMAL ACCOMODATION - ENT Exam ENT Exam: Mucous Membranes Moist, Normal Exam - Neck Exam Neck Exam: Full ROM, Normal Inspection. absent: Tenderness - Respiratory Exam Respiratory Exam: Clear to Ausculation Bilateral, NORMAL BREATHING PATTERN. absent: Accessory Muscle Use, Rales, Rhonchi, Wheezes, Respiratory Distress, Stridor - Cardiovascular Exam Cardiovascular Exam: +S1, +S2, Murmur (harsh, loud holosystolic murmur along aortic region) - Extremities Exam Extremities Exam: Full ROM, Normal Capillary Refill, Normal Inspection. absent: Calf Tenderness, Pedal Edema - Back Exam Back Exam: NORMAL INSPECTION - Neurological Exam Neurological Exam: Alert, Awake, CN II-XII Intact, Normal Gait, Oriented x3 - Psychiatric Exam Psychiatric exam: Normal Affect, Normal Mood - Skin Skin Exam: Dry, Intact, Normal Color, Warm Assessment and Plan - Assessment and Plan (Free Text) Assessment: 78 yo male with new onset Afib, severe aortic stenosis, and HLD who presents with R-sided lower rib pain. Patient recently hospitalized with Afib, sever aortic stenosis, and possible cholecystitis. Plan: Cholecystitis -negative Marion sign on PE, no acute abdominal pain this AM -low grade fever spike yest afternoon -Leukocytosis downtrending, bands on admission -Blood cultures negative x2 after 24 hrs -Zosyn 3.375 g q6 for empiric coverage -HIDA scan (12/22): Non-filling of gallbladder consistent w/ cystic duct obstruction/cholecystitis -Abdominal u/s (12/22): Fatty infiltration of the liver. Thickened gallbladder wall with cholelithiasis and sludge. Negative sonographic Marion sign. Findings equivocal for cholecystitis. -CT abdomen/pelvis w/o IV contrast (12/18/18): Prominently distended gallbladder with associated sludge and calculi as well as prominent gallbladder wall thickening, edema, and pericholecystic fluid. These findings are concerning for acute cholecystitis. -Abd US: Fatty infiltration of the liver. Thickened gallbladder wall with cholelithiasis and sludge. Negative sonographic Marion sign. Findings equivocal for cholecystitis. -Cardio noted high risk for cosme-operative complications -Surgery recs (Arago) appreciated -recs for IR ana rosa tube insertion given positive HIDA -With new cardiac diagnoses, patient high risk for OR and will need valve repair/cardiac optimization prior to cholecystectomy. -hold eliquis if possible for IR intervention if necessary Atrial fibrillation -currently rate controlled -eliquis 5 mg PO BID- HOLD Severe aortic stenosis -ECHO done last admission on 12/18/18 -Cardio rec outpatient follow-up for TAVR Hyperlipidemia, chronic -Crestor 10 mg PO QHS Ppx, Diet, Disposition -DVT ppx: SCDs, Eliquis 5 mg PO BID- HOLD -GI ppx: not indicated -Diet: NPO for possible intervention Case discussed with Dr. Jess Vivas DO, PGY-1 <Juan Mercado - Last Filed: 12/23/18 14:45> Objective - Vital Signs/Intake and Output Vital Signs (last 24 hours): Temp Pulse Resp BP Pulse Ox 99.4 F 84 20 116/58 L 97 12/23/18 08:28 12/23/18 08:28 12/23/18 08:28 12/23/18 08:28 12/23/18 08:28 Intake and Output: 12/23/18 12/23/18 06:59 18:59 Intake Total 1320 Balance 1320 - Medications Medications: Current Medications Acetaminophen (Tylenol 325mg Tab) 650 mg PO Q6 PRN PRN Reason: Pain, moderate (4-7) Sodium Chloride (Sodium Chloride 0.9%) 1,000 mls @ 50 mls/hr IV .Q20H SHILOH Last Admin: 12/23/18 13:00 Dose: 50 mls/hr Piperacillin Sod/Tazobactam Sod (Zosyn 3.375 Gm Iv Premix) 3.375 gm in 50 mls @ 100 mls/hr IVPB Q6H SHILOH; Protocol Last Admin: 12/23/18 13:22 Dose: 100 mls/hr Pneumococcal Polyvalent Vaccine (Pneumovax 23 Vaccine) 0.5 ml IM .ONCE ONE Stop: 12/24/18 10:01 Rosuvastatin Calcium (Crestor) 10 mg PO HS SHILOH - Labs Labs: 12/23/18 08:42 12/23/18 08:42 PT 16.4 SECONDS (9.7-12.2) H 12/22/18 06:04 INR 1.5 12/22/18 06:04 APTT 44.0 SECONDS (21-34) H 12/22/18 06:04 Attending/Attestation - Attestation I have personally seen and examined this patient.: Yes I have fully participated in the care of the patient.: Yes I have reviewed all pertinent clinical information, including history, physical exam and plan: Yes Notes (Text): 12/23/18 14:37 Medical attending: Patient was seen and examined by me. Agree with the above note by the resident The patient was not in any acute distress when I came and saw, surgery consulted IR for intervention. The patient had a + HIDA scan. There is a history of severe from before. The patient did not have pain with palpation of the R U Q with deep palpation with inspiration. At this time will add IV abx as he does have an elevated WBC and L shift noted Juan Mercado
[2018-12-23 08:57] LABS: BASO # 0.1 K/uL (0.0-0.2); BASO % 0.6 % (0.0-2.0); EOS % 0.3 % (0.0-4.0); HEMOGLOBIN 12.9 g/dL (12.0-18.0); LYMPH # 1.3 K/uL (1.0-4.3); LYMPH % 9.2 % (20.0-40.0); MEAN CELL VOLUME 95.4 fL (80.0-94.0); MEAN CORPUSCULAR HEMOGLOBIN 32.7 pg (27.0-31.0); MEAN CORPUSCULAR HGB CONC 34.2 g/dL (33.0-37.0); MEAN PLATELET VOLUME 9.5 fL (7.2-11.7); MONO # 1.3 K/uL (0.0-0.8); MONO % 9.2 % (0.0-10.0); NEUT # 11.2 K/uL (1.8-7.0); NEUT % 80.7 % (50.0-75.0); PLATELET COUNT 263 K/uL (130-400); RBC 3.94 Mil/uL (4.40-5.90); RED CELL DISTRIBUTION WIDTH 13.1 % (11.5-14.5); WHITE BLOOD COUNT 13.9 K/uL (4.8-10.8)
[2018-12-23 09:20] LABS: ALB/GLOB RATIO 1.2 (1.0-2.1); ALBUMIN 3.3 g/dL (3.5-5.0); ALT/SGPT 52 U/L (21-72); AST/SGOT 79 U/L (17-59); BLOOD UREA NITROGEN 10 mg/dL (9-20); CALCIUM 8.6 mg/dl (8.6-10.4); GFR NON-AFRICAN AMERICAN > 60
[2018-12-23 09:37] LABS: LYMPHOCYTE 11 % (20-40); MONOCYTE 10 % (0-10); NEUTROPHIL 79 % (50-75); PLATELET ESTIMATE NORMAL (NORMAL); TOTAL CELLS COUNTED 100
--- NOTE | 2018-12-23 10:31 | CP.PCM.PN ---
Subjective - Date & Time of Evaluation Date of Evaluation: 12/23/18 Time of Evaluation: 07:00 - Subjective Subjective: General Surgery Note for Dr. Wilson Patient seen and examined at bedside. No acute event overnight. Patient stated pain has improved. Denies fever/chills or n/v/d. Patient has no complaints at this time. Plan for IR cholecystotomy tube given cardiac issues. Objective - Vital Signs/Intake and Output Vital Signs (last 24 hours): Temp Pulse Resp BP Pulse Ox 99.4 F 84 20 116/58 L 97 12/23/18 08:28 12/23/18 08:28 12/23/18 08:28 12/23/18 08:28 12/23/18 08:28 Intake and Output: 12/23/18 12/23/18 06:59 18:59 Intake Total 1320 Balance 1320 - Medications Medications: Current Medications Acetaminophen (Tylenol 325mg Tab) 650 mg PO Q6 PRN PRN Reason: Pain, moderate (4-7) Sodium Chloride (Sodium Chloride 0.9%) 1,000 mls @ 50 mls/hr IV .Q20H [facility] Last Admin: 12/22/18 09:38 Dose: 50 mls/hr Pneumococcal Polyvalent Vaccine (Pneumovax 23 Vaccine) 0.5 ml IM .ONCE ONE Stop: 12/24/18 10:01 Rosuvastatin Calcium (Crestor) 10 mg PO HS [facility] - Labs Labs: 12/23/18 08:42 12/23/18 08:42 PT 16.4 SECONDS (9.7-12.2) H 12/22/18 06:04 INR 1.5 12/22/18 06:04 APTT 44.0 SECONDS (21-34) H 12/22/18 06:04 - Constitutional Appears: No Acute Distress - Head Exam Head Exam: ATRAUMATIC, NORMOCEPHALIC - Eye Exam Eye Exam: EOMI, Normal appearance Pupil Exam: PERRL - ENT Exam ENT Exam: Mucous Membranes Moist - Respiratory Exam Respiratory Exam: NORMAL BREATHING PATTERN - Cardiovascular Exam Cardiovascular Exam: REGULAR RHYTHM - GI/Abdominal Exam GI & Abdominal Exam: Soft, Normal Bowel Sounds. absent: Distended, Firm, Guarding, Rigid, Tenderness, Rebound - Extremities Exam Extremities Exam: Normal Capillary Refill - Back Exam Back Exam: absent: CVA tenderness (L), CVA tenderness (R) - Neurological Exam Neurological Exam: Alert, Awake, Oriented x3 - Psychiatric Exam Psychiatric exam: Normal Affect, Normal Mood - Skin Skin Exam: Dry, Intact, Warm Assessment and Plan - Assessment and Plan (Free Text) Assessment: 78 M who presents with cholecystitis (HIDA positive) Plan: -NPO for procedure -IVF -IV abx -Pain control -Anti-emetics PRN -IR cholecystotomy tube placement -Further recommendations as per Dr. Katie Andrade PGY2
--- NOTE | 2018-12-23 12:21 | CARD ---
APPROVED REPORT Date of service: 12/22/2018 EKG Measurement Heart [id number] <Conclusion> Sinus rhythm with premature atrial complexes Biatrial enlargement Left ventricular hypertrophy with repolarization abnormality Abnormal ECG
[2018-12-23] MEDS: Sodium Chloride 0.9% 1,000 ML IV SCH (13:00)
[2018-12-23] MEDS: Piperacill/Tazo 3.375gm in Dex 3.375 GM/50 ML BAG IVPB SCH ×2 (13:22→17:34)
[2018-12-24] MEDS: Piperacill/Tazo 3.375gm in Dex 3.375 GM/50 ML BAG IVPB SCH ×4 (00:28→17:31)
[2018-12-24] MEDS: Sodium Chloride 0.9% 1,000 ML IV SCH ×2 (01:40→10:28)
[2018-12-24 06:48] LABS: BASO % 0.3 % (0.0-2.0); EOS # 0.1 K/uL (0.0-0.7); EOS % 0.9 % (0.0-4.0); HEMOGLOBIN 12.7 g/dL (12.0-18.0); LYMPH # 1.6 K/uL (1.0-4.3); LYMPH % 16.2 % (20.0-40.0); MEAN CELL VOLUME 95.4 fL (80.0-94.0); MEAN CORPUSCULAR HEMOGLOBIN 32.8 pg (27.0-31.0); MEAN CORPUSCULAR HGB CONC 34.4 g/dL (33.0-37.0); MEAN PLATELET VOLUME 9.3 fL (7.2-11.7); NEUT # 7.3 K/uL (1.8-7.0); NEUT % 72.6 % (50.0-75.0); NRBC % 0.1 % (0.0-2.0); RBC 3.88 Mil/uL (4.40-5.90); RED CELL DISTRIBUTION WIDTH 13.2 % (11.5-14.5); WHITE BLOOD COUNT 10.1 K/uL (4.8-10.8)
[2018-12-24 07:04] LABS: ALB/GLOB RATIO 1.1 (1.0-2.1); ALBUMIN 3.1 g/dL (3.5-5.0); ALT/SGPT 42 U/L (21-72); AST/SGOT 41 U/L (17-59); BLOOD UREA NITROGEN 16 mg/dL (9-20); CALCIUM 8.4 mg/dl (8.6-10.4); GFR NON-AFRICAN AMERICAN 59
--- NOTE | 2018-12-24 09:47 | CP.PCM.PN ---
<Sebas Vivas - Last Filed: 12/24/18 13:16> Subjective - Date & Time of Evaluation Date of Evaluation: 12/24/18 Time of Evaluation: 09:47 - Subjective Subjective: PGY-1 Medicine Progress Note for Dr. Mercado Patient seen and examined at bedside this AM. No acute somatic complaints, no overnight events. Denies any abdominal pain, n/v/d/c. 12 pt ROS reviewed and otherwise negative. Objective - Vital Signs/Intake and Output Vital Signs (last 24 hours): Temp Pulse Resp BP Pulse Ox 98.6 F 82 20 120/65 99 12/24/18 07:54 12/24/18 07:54 12/24/18 07:54 12/24/18 07:54 12/24/18 07:54 Intake and Output: 12/24/18 12/24/18 06:59 18:59 Intake Total 850 Balance 850 - Medications Medications: Current Medications Acetaminophen (Tylenol 325mg Tab) 650 mg PO Q6 PRN PRN Reason: Pain, moderate (4-7) Sodium Chloride (Sodium Chloride 0.9%) 1,000 mls @ 50 mls/hr IV .Q20H [facility] Last Admin: 12/24/18 01:40 Dose: Not Given Piperacillin Sod/Tazobactam Sod (Zosyn 3.375 Gm Iv Premix) 3.375 gm in 50 mls @ 100 mls/hr IVPB Q6H [facility]; Protocol Last Admin: 12/24/18 05:45 Dose: 100 mls/hr Pneumococcal Polyvalent Vaccine (Pneumovax 23 Vaccine) 0.5 ml IM .ONCE ONE Stop: 12/24/18 10:01 Rosuvastatin Calcium (Crestor) 10 mg PO HS [facility] - Labs Labs: 12/24/18 06:28 12/24/18 06:28 PT 16.4 SECONDS (9.7-12.2) H 12/22/18 06:04 INR 1.5 12/22/18 06:04 APTT 44.0 SECONDS (21-34) H 12/22/18 06:04 - Constitutional Appears: Non-toxic, No Acute Distress - Head Exam Head Exam: ATRAUMATIC, NORMAL INSPECTION, NORMOCEPHALIC - Eye Exam Eye Exam: EOMI, Normal appearance Pupil Exam: NORMAL ACCOMODATION - ENT Exam ENT Exam: Mucous Membranes Moist, Normal Exam - Neck Exam Neck Exam: Full ROM, Normal Inspection - Respiratory Exam Respiratory Exam: Clear to Ausculation Bilateral, NORMAL BREATHING PATTERN. absent: Accessory Muscle Use, Rales, Rhonchi, Wheezes, Respiratory Distress, Stridor - Cardiovascular Exam Cardiovascular Exam: REGULAR RHYTHM, +S1, +S2 - GI/Abdominal Exam GI & Abdominal Exam: Soft, Normal Bowel Sounds. absent: Distended, Firm, Guarding, Rigid, Tenderness, Rebound - Extremities Exam Extremities Exam: Full ROM, Normal Capillary Refill, Normal Inspection. absent: Calf Tenderness, Pedal Edema - Back Exam Back Exam: NORMAL INSPECTION - Neurological Exam Neurological Exam: Alert, Awake, Oriented x3 - Skin Skin Exam: Dry, Intact, Normal Color, Warm Assessment and Plan - Assessment and Plan (Free Text) Assessment: 78 yo male with new onset Afib, severe aortic stenosis, and HLD who presents with R-sided lower rib pain. Patient recently hospitalized with Afib, sever aortic stenosis, and possible cholecystitis. Plan: Cholecystitis -negative Marion sign on PE, no acute abdominal pain this AM -low grade fever spike yest afternoon -Leukocytosis downtrending, bands on admission -Blood cultures negative x2 after 24 hrs -Zosyn 3.375 g q6 for empiric coverage -HIDA scan (12/22): Non-filling of gallbladder consistent w/ cystic duct obstruction/cholecystitis -Abdominal u/s (12/22): Fatty infiltration of the liver. Thickened gallbladder wall with cholelithiasis and sludge. Negative sonographic Marion sign. Findings equivocal for cholecystitis. -CT abdomen/pelvis w/o IV contrast (12/18/18): Prominently distended gallbladder with associated sludge and calculi as well as prominent gallbladder wall thickening, edema, and pericholecystic fluid. These findings are concerning for acute cholecystitis. -Abd US: Fatty infiltration of the liver. Thickened gallbladder wall with cholelithiasis and sludge. Negative sonographic Marion sign. Findings equivocal for cholecystitis. -Cardio noted high risk for cosme-operative complications -Surgery recs (Arago) appreciated -recs for IR ana rosa tube insertion given positive HIDA -With new cardiac diagnoses, patient high risk for OR and will need valve repair/cardiac optimization prior to cholecystectomy. -hold eliquis if possible for IR intervention if necessary Atrial fibrillation -currently rate controlled -eliquis 5 mg PO BID- HOLD Severe aortic stenosis -ECHO done last admission on 12/18/18 -Cardio rec outpatient follow-up for TAVR Hyperlipidemia, chronic -Crestor 10 mg PO QHS Ppx, Diet, Disposition -DVT ppx: SCDs, Eliquis 5 mg PO BID- HOLD -GI ppx: not indicated -Diet: NPO for possible intervention Case discussed with Dr. Jess Vivas DO, PGY-1 <Juan Mercado - Last Filed: 12/24/18 15:51> Objective - Vital Signs/Intake and Output Vital Signs (last 24 hours): Temp Pulse Resp BP Pulse Ox 98.6 F 82 20 120/65 99 12/24/18 07:54 12/24/18 07:54 12/24/18 07:54 12/24/18 07:54 12/24/18 14:36 Intake and Output: 12/24/18 12/24/18 06:59 18:59 Intake Total 850 400 Balance 850 400 - Medications Medications: Current Medications Acetaminophen (Tylenol 325mg Tab) 650 mg PO Q6 PRN PRN Reason: Pain, moderate (4-7) Sodium Chloride (Sodium Chloride 0.9%) 1,000 mls @ 50 mls/hr IV .Q20H [facility] Last Admin: 12/24/18 10:28 Dose: 50 mls/hr Piperacillin Sod/Tazobactam Sod (Zosyn 3.375 Gm Iv Premix) 3.375 gm in 50 mls @ 100 mls/hr IVPB Q6H [facility]; Protocol Last Admin: 12/24/18 12:45 Dose: 100 mls/hr Rosuvastatin Calcium (Crestor) 10 mg PO HS [facility] - Labs Labs: 12/24/18 06:28 12/24/18 06:28 PT 16.4 SECONDS (9.7-12.2) H 12/22/18 06:04 INR 1.5 12/22/18 06:04 APTT 44.0 SECONDS (21-34) H 12/22/18 06:04 Attending/Attestation - Attestation I have personally seen and examined this patient.: Yes I have fully participated in the care of the patient.: Yes I have reviewed all pertinent clinical information, including history, physical exam and plan: Yes Notes (Text): 12/24/18 15:47 Medical attending: Patient was seen and examined by me. Agree with the above note by the resident The patient was not in any acute distress. He reported he was doing well. On exam I pressed in the RUQ and asked him to take deep breaths in and out and he was fine. He did not have pain and was not short of breath Currently the patient WBC was decreased to 10. Surgery has asked for IR evaluation in case he may need a a drain. Juan Mercado
[2018-12-24] MEDS ORDERED: Pneumococcal 23-Valent Vaccine IM ONE (10:00)
--- NOTE | 2018-12-24 15:45 | CP.PCM.PN ---
Subjective - Date & Time of Evaluation Date of Evaluation: 12/24/18 Time of Evaluation: 07:05 - Subjective Subjective: General Surgery Note for Dr. Wilson Patient seen and examined at bedside. No acute event overnight. Patient yanna pain. Denies fever/chills or n/v/d. Objective - Vital Signs/Intake and Output Vital Signs (last 24 hours): Temp Pulse Resp BP Pulse Ox 98.6 F 82 20 120/65 99 12/24/18 07:54 12/24/18 07:54 12/24/18 07:54 12/24/18 07:54 12/24/18 14:36 Intake and Output: 12/24/18 12/24/18 06:59 18:59 Intake Total 850 400 Balance 850 400 - Medications Medications: Current Medications Acetaminophen (Tylenol 325mg Tab) 650 mg PO Q6 PRN PRN Reason: Pain, moderate (4-7) Sodium Chloride (Sodium Chloride 0.9%) 1,000 mls @ 50 mls/hr IV .Q20H [facility] Last Admin: 12/24/18 10:28 Dose: 50 mls/hr Piperacillin Sod/Tazobactam Sod (Zosyn 3.375 Gm Iv Premix) 3.375 gm in 50 mls @ 100 mls/hr IVPB Q6H [facility]; Protocol Last Admin: 12/24/18 12:45 Dose: 100 mls/hr Rosuvastatin Calcium (Crestor) 10 mg PO HS [facility] - Labs Labs: 12/24/18 06:28 12/24/18 06:28 PT 16.4 SECONDS (9.7-12.2) H 12/22/18 06:04 INR 1.5 12/22/18 06:04 APTT 44.0 SECONDS (21-34) H 12/22/18 06:04 - Additional Findings Additional findings: - Constitutional Appears: No Acute Distress - Head Exam Head Exam: ATRAUMATIC, NORMOCEPHALIC - Eye Exam Eye Exam: EOMI, Normal appearance Pupil Exam: PERRL - ENT Exam ENT Exam: Mucous Membranes Moist - Respiratory Exam Respiratory Exam: NORMAL BREATHING PATTERN - Cardiovascular Exam Cardiovascular Exam: REGULAR RHYTHM - GI/Abdominal Exam GI & Abdominal Exam: Soft, Normal Bowel Sounds. absent: Distended, Firm, Guarding, Rigid, Tenderness, Rebound - Extremities Exam Extremities Exam: Normal Capillary Refill - Back Exam Back Exam: absent: CVA tenderness (L), CVA tenderness (R) - Neurological Exam Neurological Exam: Alert, Awake, Oriented x3 - Psychiatric Exam Psychiatric exam: Normal Affect, Normal Mood - Skin Skin Exam: Dry, Intact, Warm Assessment and Plan - Assessment and Plan (Free Text) Assessment: 78 M who presents with cholecystitis (HIDA positive) Plan: -No surgical intervention at this time due to cardiac issues -Recommend IR cholecystotomy tube placement -Further recommendations as per Dr. Katie Andrade PGY2
[2018-12-25] MEDS: Piperacill/Tazo 3.375gm in Dex 3.375 GM/50 ML BAG IVPB SCH ×4 (00:21→17:39)
[2018-12-25 07:42] LABS: BASO % 0.5 % (0.0-2.0); EOS # 0.1 K/uL (0.0-0.7); EOS % 1.6 % (0.0-4.0); HEMOGLOBIN 12.5 g/dL (12.0-18.0); LYMPH # 1.7 K/uL (1.0-4.3); LYMPH % 19.1 % (20.0-40.0); MEAN CELL VOLUME 95.2 fL (80.0-94.0); MEAN CORPUSCULAR HEMOGLOBIN 33.3 pg (27.0-31.0); MEAN PLATELET VOLUME 9.3 fL (7.2-11.7); MONO # 0.9 K/uL (0.0-0.8); MONO % 9.7 % (0.0-10.0); NEUT # 6.3 K/uL (1.8-7.0); NEUT % 69.1 % (50.0-75.0); RBC 3.76 Mil/uL (4.40-5.90); RED CELL DISTRIBUTION WIDTH 13.2 % (11.5-14.5); WHITE BLOOD COUNT 9.1 K/uL (4.8-10.8)
[2018-12-25 08:21] LABS: ALBUMIN 3.1 g/dL (3.5-5.0); ALT/SGPT 32 U/L (21-72); AST/SGOT 34 U/L (17-59); BLOOD UREA NITROGEN 17 mg/dL (9-20); CALCIUM 8.4 mg/dl (8.6-10.4); GFR NON-AFRICAN AMERICAN 54
[2018-12-25] MEDS: Sodium Chloride 0.9% 1,000 ML IV SCH (08:44)
--- NOTE | 2018-12-25 09:47 | CP.PCM.PN ---
<Sebas Vivas - Last Filed: 12/25/18 12:11> Subjective - Date & Time of Evaluation Date of Evaluation: 12/25/18 Time of Evaluation: 09:47 - Subjective Subjective: PGY-1 Medicine Progress Note for Dr. Mercado Patient seen and examined at bedside. No acute overnight events reported. Remains NPO for cystostomy tube placement later this morning. No abdominal pain or other acute somatic complaints at this time. Will follow up further recs. Objective - Vital Signs/Intake and Output Vital Signs (last 24 hours): Temp Pulse Resp BP Pulse Ox 98.4 F 71 20 119/61 98 12/25/18 07:58 12/25/18 07:58 12/25/18 07:58 12/25/18 07:58 12/25/18 09:25 Intake and Output: 12/25/18 12/25/18 06:59 18:59 Intake Total 400 Output Total 600 Balance -200 - Medications Medications: Current Medications Acetaminophen (Tylenol 325mg Tab) 650 mg PO Q6 PRN PRN Reason: Pain, moderate (4-7) Sodium Chloride (Sodium Chloride 0.9%) 1,000 mls @ 50 mls/hr IV .Q20H [facility] Last Admin: 12/25/18 08:44 Dose: 50 mls/hr Piperacillin Sod/Tazobactam Sod (Zosyn 3.375 Gm Iv Premix) 3.375 gm in 50 mls @ 100 mls/hr IVPB Q6H [facility]; Protocol Last Admin: 12/25/18 05:48 Dose: 100 mls/hr Rosuvastatin Calcium (Crestor) 10 mg PO HS [facility] Last Admin: 12/24/18 21:28 Dose: 10 mg - Labs Labs: 12/25/18 07:23 12/25/18 07:23 PT 16.4 SECONDS (9.7-12.2) H 12/22/18 06:04 INR 1.5 12/22/18 06:04 APTT 44.0 SECONDS (21-34) H 12/22/18 06:04 - Constitutional Appears: Non-toxic, No Acute Distress - Head Exam Head Exam: ATRAUMATIC, NORMAL INSPECTION, NORMOCEPHALIC - Eye Exam Eye Exam: EOMI, Normal appearance, PERRL - ENT Exam ENT Exam: Mucous Membranes Moist, Normal Exam - Neck Exam Neck Exam: Full ROM, Normal Inspection - Respiratory Exam Respiratory Exam: Clear to Ausculation Bilateral, NORMAL BREATHING PATTERN. absent: Accessory Muscle Use, Rales, Rhonchi, Wheezes, Respiratory Distress, Stridor - Cardiovascular Exam Cardiovascular Exam: REGULAR RHYTHM, +S1, +S2 - GI/Abdominal Exam GI & Abdominal Exam: Soft, Normal Bowel Sounds. absent: Distended, Firm, Guarding, Rigid, Tenderness, Rebound - Extremities Exam Extremities Exam: Full ROM, Normal Capillary Refill, Normal Inspection - Back Exam Back Exam: NORMAL INSPECTION - Neurological Exam Neurological Exam: Alert, Awake, Oriented x3 - Skin Skin Exam: Dry, Intact, Normal Color, Warm Assessment and Plan - Assessment and Plan (Free Text) Assessment: 78 yo male with new onset Afib, severe aortic stenosis, and HLD who presents with R-sided lower rib pain. Patient recently hospitalized with Afib, sever aortic stenosis, and possible cholecystitis. Plan: Cholecystitis -negative Marion sign on PE, no acute abdominal pain this AM -WBC normalized -Blood cultures negative x2 -Zosyn 3.375 g q6 for empiric coverage -HIDA scan (12/22): Non-filling of gallbladder consistent w/ cystic duct o bstruction/cholecystitis -Abdominal u/s (12/22): Fatty infiltration of the liver. Thickened gallbladder wall with cholelithiasis and sludge. Negative sonographic Marion sign. Findings equivocal for cholecystitis. -CT abdomen/pelvis w/o IV contrast (12/18/18): Prominently distended gallbladder with associated sludge and calculi as well as prominent gallbladder wall thickening, edema, and pericholecystic fluid. These findings are concerning for acute cholecystitis. -Abd US: Fatty infiltration of the liver. Thickened gallbladder wall with cholelithiasis and sludge. Negative sonographic Marion sign. Findings equivocal for cholecystitis. -Cardio noted high risk for cosme-operative complications -Surgery recs (Katie) appreciated -recs for IR ana rosa tube insertion given positive HIDA -With new cardiac diagnoses, patient high risk for OR and will need valve repair/cardiac optimization prior to cholecystectomy. -hold eliquis if possible for IR intervention if necessary -IR (Dr Hamilton) on board -pt NPO for cystostomy tube later this AM Atrial fibrillation -currently rate controlled -eliquis 5 mg PO BID- HOLD Severe aortic stenosis -ECHO done last admission on 12/18/18 -Cardio rec outpatient follow-up for TAVR Hyperlipidemia, chronic -Crestor 10 mg PO QHS Ppx, Diet, Disposition -DVT ppx: SCDs, Eliquis 5 mg PO BID- HOLD -GI ppx: not indicated -Diet: NPO for cysto tube later today Case discussed with Dr. Jess Vivas DO, PGY-1 <Juan Mercado - Last Filed: 12/25/18 13:39> Objective - Vital Signs/Intake and Output Vital Signs (last 24 hours): Temp Pulse Resp BP Pulse Ox 98 F 85 20 133/72 95 12/25/18 11:50 12/25/18 11:50 12/25/18 11:50 12/25/18 11:50 12/25/18 13:12 Intake and Output: 12/25/18 12/25/18 06:59 18:59 Intake Total 400 Output Total 600 Balance -200 - Medications Medications: Current Medications Acetaminophen (Tylenol 325mg Tab) 650 mg PO Q6 PRN PRN Reason: Pain, moderate (4-7) Last Admin: 12/25/18 11:43 Dose: 650 mg Sodium Chloride (Sodium Chloride 0.9%) 1,000 mls @ 50 mls/hr IV .Q20H [facility] Last Admin: 12/25/18 08:44 Dose: 50 mls/hr Piperacillin Sod/Tazobactam Sod (Zosyn 3.375 Gm Iv Premix) 3.375 gm in 50 mls @ 100 mls/hr IVPB Q6H [facility]; Protocol Last Admin: 12/25/18 11:43 Dose: 100 mls/hr Rosuvastatin Calcium (Crestor) 10 mg PO HS [facility] Last Admin: 12/24/18 21:28 Dose: 10 mg - Labs Labs: 12/25/18 07:23 12/25/18 07:23 PT 16.4 SECONDS (9.7-12.2) H 12/22/18 06:04 INR 1.5 12/22/18 06:04 APTT 44.0 SECONDS (21-34) H 12/22/18 06:04 Attending/Attestation - Attestation I have personally seen and examined this patient.: Yes I have fully participated in the care of the patient.: Yes I have reviewed all pertinent clinical information, including history, physical exam and plan: Yes Notes (Text): 12/25/18 13:37 Medical attending: Patient was seen just as he was returning from for the cystostomy tube placement. He said he had minimal tenderness. He was walking in his room when we came to see him. He now has a drain in place with dark abhinav color fluid Patient remains on the IV abx at this time. thank you Juan Mercado
[2018-12-25] MEDS ORDERED: Midazolam 2 MG/2 ML VIAL ONE (11:00)
--- NOTE | 2018-12-25 11:16 | PCM.SURG1 ---
Surgeon's Initial Post Op Note - Surgeon's Notes Surgeon: Timo Hamilton MD Rail Car Repairer: NONE Type of Anesthesia: Moderate Sedation{RN} Pre-Operative Diagnosis: Acute cholecystitis Operative Findings: US showed a distended GB with irregular wall thickening, slugde, free fluid Post-Operative Diagnosis: Acute cholecystitis Operation Performed: Perc. cholecystostomy tube placement. Specimen/Specimens Removed: 10 cc of bile Estimated Blood Loss: EBL {In ML}: 2 Blood Products Given: N/A Drains Used: Paco Lee Post-Op Condition: Fair Date of Surgery/Procedure: 12/25/18 Time of Surgery/Procedure: 11:15
--- NOTE | 2018-12-25 12:21 | US ---
PROCEDURE: Date of procedure: 12/25/2018 Procedure: 1. Percutaneous Cholecystostomy tube placement Medications: The patient was sedated by the interventional radiology nurse along with physiologic monitoring. 8 cubic centimeters lidocaine 2 percent, 1 milligram Versed and 50 microgram fentanyl HISTORY: Acute cholecystitis TECHNIQUE: Following informed consent the patient right abdomen was marked. The patient was placed supine on the interventional table and procedure time-out was called. Ultrasound showed distended gallbladder. At the patient sedated, the skin was anesthetized with 2 percent lidocaine. Under direct ultrasound guidance, a [employer] catheter was advanced percutaneously into the gallbladder. Upon return of bile, an 035 wire was advanced into the gallbladder and was coiled within the gallbladder. The tract was dilated to accommodate 8 Indonesian drainage catheter which was formed within the gallbladder. Position of the catheter was confirmed repeat ultrasound. The catheter secured to patient's skin and dressing applied. IMPRESSION: Percutaneous placement of an 8 Fr cholecystostomy tube.
[2018-12-26] MEDS: Piperacill/Tazo 3.375gm in Dex 3.375 GM/50 ML BAG IVPB SCH ×3 (00:22→12:30)
[2018-12-26 06:32] LABS: BASO % 0.1 % (0.0-2.0); EOS # 0.1 K/uL (0.0-0.7); EOS % 0.8 % (0.0-4.0); HEMOGLOBIN 11.8 g/dL (12.0-18.0); LYMPH # 1.3 K/uL (1.0-4.3); LYMPH % 10.5 % (20.0-40.0); MEAN CELL VOLUME 95.3 fL (80.0-94.0); MEAN CORPUSCULAR HEMOGLOBIN 31.5 pg (27.0-31.0); MEAN PLATELET VOLUME 9.1 fL (7.2-11.7); MONO # 0.9 K/uL (0.0-0.8); MONO % 6.9 % (0.0-10.0); NEUT # 10.4 K/uL (1.8-7.0); NEUT % 81.7 % (50.0-75.0); RBC 3.74 Mil/uL (4.40-5.90); RED CELL DISTRIBUTION WIDTH 13.3 % (11.5-14.5); WHITE BLOOD COUNT 12.7 K/uL (4.8-10.8)
[2018-12-26 07:00] LABS: ALB/GLOB RATIO 1.1 (1.0-2.1); ALBUMIN 3.1 g/dL (3.5-5.0); ALT/SGPT 46 U/L (21-72); AST/SGOT 67 U/L (17-59); BLOOD UREA NITROGEN 15 mg/dL (9-20); GFR NON-AFRICAN AMERICAN 59
--- NOTE | 2018-12-26 07:53 | CP.PCM.PN ---
<Sebas Vivas - Last Filed: 12/26/18 15:09> Subjective - Date & Time of Evaluation Date of Evaluation: 12/26/18 Time of Evaluation: 07:53 - Subjective Subjective: PGY-1 Medicine Progress Note for Dr. Jess Wiseman seen and examined sitting by bedside this AM s/p cystostomy tube placement. No overnight events reported. Patient reports pain to site of tube. LILY drain noted to be somewhat bloody, darker than serosanguinous. Hb however remains stable. Will continue to monitor drain output overnight. 12 pt ROS reviewed and otherwise negative. Objective - Vital Signs/Intake and Output Vital Signs (last 24 hours): Temp Pulse Resp BP Pulse Ox 98.8 F 68 20 113/64 97 12/25/18 23:35 12/25/18 23:35 12/25/18 23:35 12/25/18 23:35 12/25/18 23:35 Intake and Output: 12/26/18 12/26/18 06:59 18:59 Intake Total 640 Output Total 500 Balance 140 - Medications Medications: Current Medications Acetaminophen (Tylenol 325mg Tab) 650 mg PO Q6 PRN PRN Reason: Pain, moderate (4-7) Last Admin: 12/26/18 05:59 Dose: 650 mg Sodium Chloride (Sodium Chloride 0.9%) 1,000 mls @ 50 mls/hr IV .Q20H SHILOH Last Admin: 12/25/18 08:44 Dose: 50 mls/hr Piperacillin Sod/Tazobactam Sod (Zosyn 3.375 Gm Iv Premix) 3.375 gm in 50 mls @ 100 mls/hr IVPB Q6H SHILOH; Protocol Last Admin: 12/26/18 06:01 Dose: 100 mls/hr Rosuvastatin Calcium (Crestor) 10 mg PO HS SHILOH Last Admin: 12/25/18 21:19 Dose: 10 mg - Labs Labs: 12/26/18 06:25 12/26/18 06:25 PT 16.4 SECONDS (9.7-12.2) H 12/22/18 06:04 INR 1.5 12/22/18 06:04 APTT 44.0 SECONDS (21-34) H 12/22/18 06:04 - Constitutional Appears: Non-toxic, No Acute Distress - Head Exam Head Exam: ATRAUMATIC, NORMAL INSPECTION, NORMOCEPHALIC - Eye Exam Eye Exam: EOMI, Normal appearance, PERRL Pupil Exam: NORMAL ACCOMODATION - ENT Exam ENT Exam: Mucous Membranes Moist, Normal Exam - Neck Exam Neck Exam: Full ROM, Normal Inspection - Respiratory Exam Respiratory Exam: Clear to Ausculation Bilateral, NORMAL BREATHING PATTERN. absent: Accessory Muscle Use, Rales, Rhonchi, Wheezes, Respiratory Distress, Stridor - Cardiovascular Exam Cardiovascular Exam: REGULAR RHYTHM, +S1, +S2 - GI/Abdominal Exam GI & Abdominal Exam: Soft, Tenderness (at site of cysto tube placement), Normal Bowel Sounds. absent: Distended, Firm, Guarding, Rigid, Rebound - Extremities Exam Extremities Exam: Full ROM, Normal Capillary Refill, Normal Inspection. absent: Calf Tenderness, Pedal Edema - Back Exam Back Exam: NORMAL INSPECTION - Neurological Exam Neurological Exam: Alert, Awake, Oriented x3 - Skin Skin Exam: Dry, Intact, Normal Color, Warm Assessment and Plan - Assessment and Plan (Free Text) Assessment: 78 yo male with new onset Afib, severe aortic stenosis, and HLD who presents with R-sided lower rib pain. Patient recently hospitalized with Afib, sever aortic stenosis, and cholecystitis s/p cystotomy tube placement. Plan: Cholecystitis -leukocytosis noted on AM labs, spike from previous day -Body fluid culture prelim: GNR -f/u finalized results -Blood cultures negative x 2 -Zosyn 3.375 g q6 -HIDA scan (12/22): Non-filling of gallbladder consistent w/ cystic duct obstruction/cholecystitis -Abdominal u/s (12/22): Fatty infiltration of the liver. Thickened gallbladder wall with cholelithiasis and sludge. Negative sonographic Marion sign. Findings equivocal for cholecystitis. -CT abdomen/pelvis w/o IV contrast (12/18/18): Prominently distended gallbladder with associated sludge and calculi as well as prominent gallbladder wall thickening, edema, and pericholecystic fluid. These findings are concerning for acute cholecystitis. -Abd US: Fatty infiltration of the liver. Thickened gallbladder wall with cholelithiasis and sludge. Negative sonographic Marion sign. Findings equivocal for cholecystitis. -Cardio noted high risk for cosme-operative complications -Surgery recs (Katie) appreciated -recs for IR ana rosa tube insertion given positive HIDA -With new cardiac diagnoses, patient high risk for OR and will need valve repair/cardiac optimization prior to cholecystectomy. -IR (Dr Hamilton) recs appreciated -s/p cystotomy tube placement Atrial fibrillation -currently rate controlled -eliquis 5 mg PO BID restarted s/p cysto tube placement Severe aortic stenosis -ECHO done last admission on 12/18/18 -Cardio rec outpatient follow-up for TAVR Hyperlipidemia, chronic -Crestor 10 mg PO QHS Ppx, Diet, Disposition -DVT ppx: SCDs, Eliquis 5 mg PO BID -GI ppx: not indicated -Diet: HHD Case discussed with Dr. Jess Vivas DO, PGY-1 <Juan Mercado - Last Filed: 12/26/18 16:22> Objective - Vital Signs/Intake and Output Vital Signs (last 24 hours): Temp Pulse Resp BP Pulse Ox 98.9 F 73 20 137/68 96 12/26/18 16:03 12/26/18 16:03 12/26/18 16:03 12/26/18 16:03 12/26/18 16:03 Intake and Output: 12/26/18 12/26/18 06:59 18:59 Intake Total 640 Output Total 600 Balance 40 - Medications Medications: Current Medications Acetaminophen (Tylenol 325mg Tab) 650 mg PO Q6 PRN PRN Reason: Pain, moderate (4-7) Last Admin: 12/26/18 15:59 Dose: 650 mg Apixaban (Eliquis) 5 mg PO BID SHILOH Sodium Chloride (Sodium Chloride 0.9%) 1,000 mls @ 50 mls/hr IV .Q20H SHILOH Last Admin: 12/26/18 10:20 Dose: 50 mls/hr Rosuvastatin Calcium (Crestor) 10 mg PO HS SHILOH Last Admin: 12/25/18 21:19 Dose: 10 mg - Labs Labs: 12/26/18 06:25 12/26/18 06:25 PT 16.4 SECONDS (9.7-12.2) H 12/22/18 06:04 INR 1.5 12/22/18 06:04 APTT 44.0 SECONDS (21-34) H 12/22/18 06:04 Attending/Attestation - Attestation I have personally seen and examined this patient.: Yes I have fully participated in the care of the patient.: Yes I have reviewed all pertinent clinical information, including history, physical exam and plan: Yes Notes (Text): 12/26/18 16:20 Medical attending: Patient was seen and examined by me. Agree with the above note by the resident The patient was not in any acute distress. The drain had about 50 cc of a dark liquid that maybe a mix of bile and blood. His Hgb is stable at this time and he is walking around in the room So will monitor for another day and if he does ok then lizette jolly can be discharged. He has been on the IV abx. Juan Mercado
[2018-12-26] MEDS: Sodium Chloride 0.9% 1,000 ML IV SCH (10:20)
[2018-12-27 06:32] LABS: BASO # 0.1 K/uL (0.0-0.2); BASO % 0.5 % (0.0-2.0); EOS # 0.1 K/uL (0.0-0.7); EOS % 1.1 % (0.0-4.0); HEMOGLOBIN 12.3 g/dL (12.0-18.0); LYMPH # 1.6 K/uL (1.0-4.3); LYMPH % 12.9 % (20.0-40.0); MEAN CELL VOLUME 95.5 fL (80.0-94.0); MEAN CORPUSCULAR HEMOGLOBIN 31.7 pg (27.0-31.0); MEAN CORPUSCULAR HGB CONC 33.2 g/dL (33.0-37.0); MEAN PLATELET VOLUME 8.9 fL (7.2-11.7); MONO # 0.8 K/uL (0.0-0.8); MONO % 6.1 % (0.0-10.0); NEUT # 9.9 K/uL (1.8-7.0); NEUT % 79.4 % (50.0-75.0); RBC 3.88 Mil/uL (4.40-5.90); WHITE BLOOD COUNT 12.5 K/uL (4.8-10.8)
[2018-12-27 06:46] LABS: ALB/GLOB RATIO 1.1 (1.0-2.1); ALBUMIN 3.3 g/dL (3.5-5.0); ALT/SGPT 39 U/L (21-72); AST/SGOT 31 U/L (17-59); BLOOD UREA NITROGEN 11 mg/dL (9-20); CALCIUM 8.1 mg/dl (8.6-10.4); GFR NON-AFRICAN AMERICAN > 60
--- NOTE | 2018-12-27 07:34 | CP.PCM.DIS ---
Provider - Provider Date of Admission: 12/25/18 15:34 Attending physician: Juan Mercado DO Consults: 12/22/18 09:33 General Surgery Consult Stat Comment: Consulting Provider: Qasim Wilson Consulting Physician: Qasim Wilson Reason for Consult: cholecystitis 12/24/18 11:27 Physician Consult Routine Comment: Consulting Provider: Timo Hamilton Consulting Physician: Timo Hamilton Reason for Consult: cholecystitis, eval for ana rosa tube Additional Comments: high risk for OR with recent diagnosis of severe aortic valve stenosis needing TAVR and a fib on anticoagulation Time Spent in preparation of Discharge (in minutes): 40 Diagnosis - Discharge Diagnosis (1) Cholecystitis Status: Acute (2) Abdominal pain Status: Resolved (3) Aortic stenosis, severe Status: Chronic (4) Atrial fibrillation Status: Chronic Hospital Course - Lab Results Lab Results: Micro Results 12/25/18 12:59 Abdominal Fluid Gram Stain - Final 12/25/18 12:59 Abdominal Fluid Body Fluid Culture - Preliminary Gram Negative Jerardo 12/22/18 09:30 Blood-Venous Blood Culture - Preliminary NO GROWTH AFTER 4 DAYS 12/22/18 09:50 Blood-Venous Blood Culture - Preliminary NO GROWTH AFTER 4 DAYS Most Recent Lab Values WBC 12.5 K/uL (4.8-10.8) H 12/27/18 06:22 RBC 3.88 Mil/uL (4.40-5.90) L 12/27/18 06:22 Hgb 12.3 g/dL (12.0-18.0) 12/27/18 06:22 Hct 37.0 % (35.0-51.0) 12/27/18 06:22 MCV 95.5 fL (80.0-94.0) H 12/27/18 06:22 MCH 31.7 pg (27.0-31.0) H 12/27/18 06:22 MCHC 33.2 g/dL (33.0-37.0) 12/27/18 06:22 RDW 13.0 % (11.5-14.5) 12/27/18 06:22 Plt Count 385 K/uL (130-400) 12/27/18 06:22 MPV 8.9 fL (7.2-11.7) 12/27/18 06:22 Neut % (Auto) 79.4 % (50.0-75.0) H 12/27/18 06:22 Lymph % (Auto) 12.9 % (20.0-40.0) L 12/27/18 06:22 [place] % (Auto) 6.1 % (0.0-10.0) 12/27/18 06:22 Eos % (Auto) 1.1 % (0.0-4.0) 12/27/18 06:22 Baso % (Auto) 0.5 % (0.0-2.0) 12/27/18 06:22 Neut # (Auto) 9.9 K/uL (1.8-7.0) H 12/27/18 06:22 Lymph # (Auto) 1.6 K/uL (1.0-4.3) 12/27/18 06:22 Hinds # (Auto) 0.8 K/uL (0.0-0.8) 12/27/18 06:22 Eos # (Auto) 0.1 K/uL (0.0-0.7) 12/27/18 06:22 Baso # (Auto) 0.1 K/uL (0.0-0.2) 12/27/18 06:22 Neutrophils % (Manual) 79 % (50-75) H 12/23/18 08:42 Lymphocytes % (Manual) 11 % (20-40) L 12/23/18 08:42 Monocytes % (Manual) 10 % (0-10) 12/23/18 08:42 Eosinophils % (Manual) 1 % (0-4) 12/22/18 06:05 Platelet Estimate Normal (NORMAL) 12/23/18 08:42 Large Platelets Present 12/22/18 06:05 RBC Morphology Normal 12/22/18 06:05 PT 16.4 SECONDS (9.7-12.2) H 12/22/18 06:04 INR 1.5 12/22/18 06:04 APTT 44.0 SECONDS (21-34) H 12/22/18 06:04 Sodium 141 mmol/L (132-148) 12/27/18 06:22 Potassium 3.6 mmol/L (3.6-5.2) 12/27/18 06:22 Chloride 101 mmol/L (98-107) 12/27/18 06:22 Carbon Dioxide 28 mmol/L (22-30) 12/27/18 06:22 Anion Gap 15 (10-20) 12/27/18 06:22 BUN 11 mg/dL (9-20) 12/27/18 06:22 Creatinine 1.0 mg/dL (0.8-1.5) 12/27/18 06:22 Est GFR ( Amer) > 60 12/27/18 06:22 Est GFR (Non-Af Amer) > 60 12/27/18 06:22 Random Glucose 84 mg/dL (75-110) D 12/27/18 06:22 Calcium 8.1 mg/dl (8.6-10.4) L 12/27/18 06:22 Phosphorus 3.0 mg/dL (2.5-4.5) 12/27/18 06:22 Magnesium 2.1 mg/dL (1.6-2.3) 12/27/18 06:22 Total Bilirubin 0.9 mg/dL (0.2-1.3) 12/27/18 06:22 AST 31 U/L (17-59) 12/27/18 06:22 ALT 39 U/L (21-72) 12/27/18 06:22 Alkaline Phosphatase 64 U/L (38-126) 12/27/18 06:22 Total Protein 6.2 g/dL (6.3-8.3) L 12/27/18 06:22 Albumin 3.3 g/dL (3.5-5.0) L 12/27/18 06:22 Globulin 3.0 gm/dL (2.2-3.9) 12/27/18 06:22 Albumin/Globulin Ratio 1.1 (1.0-2.1) 12/27/18 06:22 Lipase 37 U/L (23-300) 12/22/18 06:05 Urine Color Jamee (YELLOW) 12/22/18 06:04 Urine Clarity Hazy (Clear) 12/22/18 06:04 Urine pH 5.0 (5.0-8.0) 12/22/18 06:04 Ur Specific [place] 1.026 (1.003-1.030) 12/22/18 06:04 Urine Protein 2+ mg/dL (NEGATIVE) H 12/22/18 06:04 Urine Glucose (UA) Normal mg/dL (Normal) 12/22/18 06:04 Urine Ketones Trace mg/dL (NEGATIVE) 12/22/18 06:04 Urine Blood 2+ (NEGATIVE) H 12/22/18 06:04 Urine Nitrate Negative (NEGATIVE) 12/22/18 06:04 Urine Bilirubin Negative (NEGATIVE) 12/22/18 06:04 Urine Urobilinogen 2.0 mg/dL (0.2-1.0) 12/22/18 06:04 Ur Leukocyte Esterase Neg Isi/uL (Negative) 12/22/18 06:04 Urine WBC (Auto) 4 /hpf (0-5) 12/22/18 06:04 Urine RBC (Auto) 21 /hpf (0-3) H 12/22/18 06:04 Ur Squamous Epith Cells 1 /hpf (0-5) 12/22/18 06:04 Calcium Oxalate Crystal Occ /hpf (<OCC) H 12/22/18 06:04 Urine Bacteria Rare (<OCC) 12/22/18 06:04 Hyaline Casts 6-10 /lpf (0-2) H 12/22/18 06:04 Granular Casts (Auto) 19 /lpf (0-1) 12/22/18 06:04 - Hospital Course Hospital Course: HPI: Patient is a 78 yo male with new onset Afib, severe aortic stenosis, and HLD who presents with R-sided lower rib pain. Patient was just hospitalized with chest and abdominal pain during which he was found to have Afib and severe . He was started on Eliquis. Additionally, patient had some evidence for cholecystits. Patient was deemed high cardiac risk for surgery, and patient's abdominal symptoms resolved, so patient was discharged. Surgery recommended possible cholecystectomy in the future after patient has valvular surgery (ie. TAVR). Patient states that he felt well after leaving the hospital on Sunday. He says that he started to experience pain yesterday around 7PM. He points to the pain, and it is located on the R-side of his lower chest/abdomen. He has i ncreased pain with palpation. Denies pain with deep inspiration or cough. Denies injury. He says the pain is constant. He says the nature of the pain feels similar to that of last week; however, it is in a new location (pain was lower abdomen prior). He says he has not eaten or taken meds since yesterday morning; however, he says this is just due to pain, not with any associated pain with eating or nausea or vomiting. Patient rates the pain severity 5/10. He only tried rest to relieve the pain. Denies palpitations, dysphagia/odynophagia, SOB. The following is a summary of hospital course. For full detail, please refer to EMR: Cholecystitis -Body fluid culture prelim: GNR -Blood cultures negative x 2 -Zosyn 3.375 g q6 -HIDA scan (12/22): Non-filling of gallbladder consistent w/ cystic duct obstruction/cholecystitis -Abdominal u/s (12/22): Fatty infiltration of the liver. Thickened gallbladder wall with cholelithiasis and sludge. Negative sonographic Marion sign. Findings equivocal for cholecystitis. -CT abdomen/pelvis w/o IV contrast (12/18/18): Prominently distended gallbladder with associated sludge and calculi as well as prominent gallbladder wall th ickening, edema, and pericholecystic fluid. These findings are concerning for acute cholecystitis. -Abd US: Fatty infiltration of the liver. Thickened gallbladder wall with cholelithiasis and sludge. Negative sonographic Marion sign. Findings equivocal for cholecystitis. -Cardio noted high risk for cosme-operative complications -Surgery recs (Katie) appreciated -recs for IR ana rosa tube insertion given positive HIDA -With new cardiac diagnoses, patient high risk for OR and will need valve repair/cardiac optimization prior to cholecystectomy. -IR (Dr Hamilton) recs appreciated -s/p cystotomy tube placement Atrial fibrillation -currently rate controlled -eliquis 5 mg PO BID restarted s/p cysto tube placement Severe aortic stenosis -ECHO done last admission on 12/18/18 -Cardio rec outpatient follow-up for TAVR Hyperlipidemia, chronic -Crestor 10 mg PO QHS Ppx, Diet, Disposition -DVT ppx: SCDs, Eliquis 5 mg PO BID -GI ppx: not indicated -Diet: HHD On discharge: Patient is medically stable for discharge to home, as per Dr. Mercado. Please take medications as prescribed. Patient will need to follow up with Interventional Radiology (Dr. Hamilton) within 1 week of discharge for further monitoring/care of cystotomy tube and drain. Dr. Hamilton will also determine how long tube remains in place. Please follow up with your primary care provider (Dr. Duncan) for further monitoring and care of all chronic medical conditions. Patient will also need to follow up with Cardiology (Dr. Shankar) for TAVR planning prior to any other surgical procedures, as patient is a high cardiac risk factor. El paciente se encuentra mdicamente estable para el [facility], segn el Dr. Mercado. Por favor, tome los medicamentos segn lo prescrito. El paciente deber realizar un seguimiento con Radiologa Intervencionista (Dr. Hamilton) dentro de la primera semana del [facility] para un control / cuidado adicional del tubo de cistotoma y el drenaje. El Dr. Alfonso jacobsonbin determinar cunto tiempo permanece el tubo en sanchez lugar. Por favor, bandar un seguimiento con sanchez proveedor de atencin primaria (Dr. Duncan) para ingrid mayor supervisin y atencin de todas las afecciones mdicas crnicas. El paciente tambin deber realizar un seguimiento con Cardiologa (Dr. Karimi in) para la planificacin de TAVR antes de cualquier otro procedimiento quirrgico, ya que el paciente es un factor de alto riesgo cardaco. Discharge Exam - Head Exam Head Exam: ATRAUMATIC, NORMAL INSPECTION, NORMOCEPHALIC - Eye Exam Eye Exam: EOMI, Normal appearance Pupil Exam: NORMAL ACCOMODATION - ENT Exam ENT Exam: Mucous Membranes Moist, Normal Exam - Neck Exam Neck exam: Full Rom, Normal Inspection - Respiratory Exam Respiratory Exam: Clear to PA & Lateral, NORMAL BREATHING PATTERN, UNREMARKABLE. absent: Accessory Muscle Use, Rales, Rhonchi, Wheezes, Respiratory Distress, Stridor - Cardiovascular Exam Cardiovascular Exam: REGULAR RHYTHM, +S1, +S2 - GI/Abdominal Exam GI & Abdominal Exam: Normal Bowel Sounds, Soft, Unremarkable. absent: Distended, Firm, Guarding, Rebound, Rigid Additional comments: R sided LILY drain in place, draining adequate fluid - Extremities Exam Extremities exam: normal capillary refill, normal inspection, pedal pulses present - Back Exam Back exam: NORMAL INSPECTION - Neurological Exam Neurological exam: Alert, Normal Gait, Oriented x3 - Skin Skin Exam: Dry, Intact, Normal Color, Warm Discharge Plan - Discharge Medications Prescriptions: Apixaban [Eliquis] 5 mg PO BID #60 tab Atorvastatin [Lipitor] 20 mg PO DAILY #30 tab - Follow Up Plan Condition: STABLE Disposition: HOME/ ROUTINE Instructions: Cholecystitis (DC) Additional Instructions: Patient is medically stable for discharge to home, as per Dr. Mercado. Please take medications as prescribed. Patient will need to follow up with Interventional Radiology (Dr. Hamilton) within 1 week of discharge for further monitoring/care of cystotomy tube and drain. Dr. Hamilton will also determine how long tube remains in place. Please follow up with your primary care provider (Dr. Duncan) for further monitoring and care of all chronic medical conditions. Patient will also need to follow up with Cardiology (Dr. Shankar) for TAVR planning prior to any other surgical procedures, as patient is a high cardiac risk factor. El paciente se encuentra mdicamente estable [facility] el Dr[facility] Mercado. Por favor, tome los medicamentos segn lo prescrito. El paciente deber realizar un seguimiento con Radiologa Intervencionista (Dr. Hamilton) dentro de la primera semana del [facility] para un control / cuidado adicional del tubo de cistotoma y el drenaje. El Dr. Hamilton tambin determinar cunto tiempo permanece el tubo en sanchez lugar. Por favor, bandar un seguimiento con sanchez proveedor de atencin primaria (Dr. Duncan) para ingrid mayor supervisin y atencin de todas las afecciones mdicas crnicas. El paciente tambin deber realizar un seguimiento con Cardiologa (Dr. Shankar) para la planificacin de TAVR antes de cualquier otro procedimiento quirrgico, ya que el paciente es un factor de alto riesgo cardaco.
[2018-12-27 08:14] VITALS: O2SAT 97
[2018-12-27] MEDS: Sodium Chloride 0.9% 1,000 ML IV SCH ×2 (10:43→14:31)
--- NOTE | 2018-12-27 13:11 | CP.PCM.PN ---
<Sebas Vivas - Last Filed: 12/27/18 13:05> Subjective - Date & Time of Evaluation Date of Evaluation: 12/27/18 Time of Evaluation: 13:05 - Subjective Subjective: PGY-1 Medicine Progress Note for Dr. Mercado Patient seen and examined at bedside this AM, in no acute distress. No overnight events reported. He is tolerating PO diet well, having BM, denying any n/v/d/c. He continues to endorse pain at the drain site. I explained extensively to him using ticket attendant about the need for outpatient follow-up with IR for his drain as well as Cardiology to discuss TAVR plans prior to any gallbladder surgery. Patient is a high cardiac risk given his history. Patient doesn't seem to grasp the situation entirely, even with translators present. We have discussed his medical conditions on more than one occasion extensively, and I suspect there will be issue with compliance. Patient still endorses pain to drain site. Toradol has been added, will have surgery evaluate today for further recommendations. Objective - Vital Signs/Intake and Output Vital Signs (last 24 hours): Temp Pulse Resp BP Pulse Ox 98.8 F 85 20 156/72 H 97 12/27/18 10:43 12/27/18 08:00 12/27/18 08:00 12/27/18 08:00 12/27/18 08:00 Intake and Output: 12/27/18 12/27/18 06:59 18:59 Intake Total 1300 Output Total 850 Balance 450 - Medications Medications: Current Medications Acetaminophen (Tylenol 325mg Tab) 650 mg PO Q6 PRN PRN Reason: Pain, Mild (1-3) Apixaban (Eliquis) 5 mg PO BID [facility] Last Admin: 12/27/18 09:47 Dose: 5 mg Ketorolac Tromethamine (Toradol) 30 mg IVP Q6 PRN PRN Reason: Pain, moderate (4-7) Rosuvastatin Calcium (Crestor) 10 mg PO HS [facility] Last Admin: 12/26/18 21:31 Dose: 10 mg - Labs Labs: 12/27/18 06:22 12/27/18 06:22 PT 16.4 SECONDS (9.7-12.2) H 12/22/18 06:04 INR 1.5 12/22/18 06:04 APTT 44.0 SECONDS (21-34) H 12/22/18 06:04 - Constitutional Appears: Non-toxic, No Acute Distress - Head Exam Head Exam: ATRAUMATIC, NORMAL INSPECTION, NORMOCEPHALIC - Eye Exam Eye Exam: EOMI, Normal appearance, PERRL Pupil Exam: NORMAL ACCOMODATION - ENT Exam ENT Exam: Mucous Membranes Moist, Normal Exam - Neck Exam Neck Exam: Full ROM, Normal Inspection - Respiratory Exam Respiratory Exam: Clear to Ausculation Bilateral, NORMAL BREATHING PATTERN. absent: Accessory Muscle Use, Rales, Rhonchi, Wheezes, Respiratory Distress, Stridor - Cardiovascular Exam Cardiovascular Exam: REGULAR RHYTHM, +S1, +S2 - GI/Abdominal Exam GI & Abdominal Exam: Soft, Tenderness (at site of drain), Normal Bowel Sounds Additional comments: LILY drain in place, draining adequate fluid surgical dressing c/d/i - Extremities Exam Extremities Exam: Full ROM, Normal Capillary Refill, Normal Inspection. absent: Calf Tenderness, Pedal Edema - Back Exam Back Exam: NORMAL INSPECTION - Neurological Exam Neurological Exam: Alert, Awake, Normal Gait, Oriented x3 - Psychiatric Exam Psychiatric exam: Normal Affect, Normal Mood - Skin Skin Exam: Dry, Intact, Normal Color, Warm Assessment and Plan - Assessment and Plan (Free Text) Assessment: 78 yo male with new onset Afib, severe aortic stenosis, and HLD who presents with R-sided lower rib pain. Patient recently hospitalized with Afib, sever aortic stenosis, and cholecystitis s/p cystotomy tube placement. Plan: Cholecystitis -patient afebrile, WBC 12.5 -Body fluid culture prelim: GNR -f/u finalized results -Blood cultures negative x 2 -Zosyn 3.375 g q6 -HIDA scan (12/22): Non-filling of gallbladder consistent w/ cystic duct obstruction/cholecystitis -Abdominal u/s (12/22): Fatty infiltration of the liver. Thickened gallbladder wall with cholelithiasis and sludge. Negative sonographic Marion sign. Findings equivocal for cholecystitis. -CT abdomen/pelvis w/o IV contrast (12/18/18): Prominently distended gallbladder with associated sludge and calculi as well as prominent gallbladder wall thickening, edema, and pericholecystic fluid. These findings are concerning for acute cholecystitis. -Abd US: Fatty infiltration of the liver. Thickened gallbladder wall with cholelithiasis and sludge. Negative sonographic Marion sign. Findings equivocal for cholecystitis. -Cardio noted high risk for cosme-operative complications -Surgery recs (Katie) appreciated -recs for IR ana rosa tube insertion given positive HIDA -With new cardiac diagnoses, patient high risk for OR and will need valve repair/cardiac optimization prior to cholecystectomy. -IR (Dr Hamilton) recs appreciated -s/p cystotomy tube placement Atrial fibrillation -currently rate controlled -eliquis 5 mg PO BID restarted s/p cysto tube placement Severe aortic stenosis -ECHO done last admission on 12/18/18 -Cardio rec outpatient follow-up for TAVR Hyperlipidemia, chronic -Crestor 10 mg PO QHS Ppx, Diet, Disposition -DVT ppx: SCDs, Eliquis 5 mg PO BID -GI ppx: not indicated -Diet: HHD Case discussed with Dr. Jess Vivas DO, PGY-1 <Juan Mercado - Last Filed: 12/27/18 15:26> Objective - Vital Signs/Intake and Output Vital Signs (last 24 hours): Temp Pulse Resp BP Pulse Ox 98.8 F 85 20 156/72 H 97 12/27/18 10:43 12/27/18 08:00 12/27/18 08:00 12/27/18 08:00 12/27/18 08:00 Intake and Output: 12/27/18 12/27/18 06:59 18:59 Intake Total 1300 880 Output Total 850 100 Balance 450 780 - Medications Medications: Current Medications Acetaminophen (Tylenol 325mg Tab) 650 mg PO Q6 PRN PRN Reason: Pain, Mild (1-3) Apixaban (Eliquis) 5 mg PO BID [facility] Last Admin: 12/27/18 09:47 Dose: 5 mg Piperacillin Sod/Tazobactam Sod (Zosyn 3.375 Gm Iv Premix) 3.375 gm in 50 mls @ 100 mls/hr IVPB Q6H [facility]; Protocol Last Admin: 12/27/18 14:31 Dose: 100 mls/hr Ketorolac Tromethamine (Toradol) 30 mg IVP Q6 PRN PRN Reason: Pain, moderate (4-7) Rosuvastatin Calcium (Crestor) 10 mg PO HS [facility] Last Admin: 12/26/18 21:31 Dose: 10 mg - Labs Labs: 12/27/18 06:22 12/27/18 06:22 PT 16.4 SECONDS (9.7-12.2) H 12/22/18 06:04 INR 1.5 12/22/18 06:04 APTT 44.0 SECONDS (21-34) H 12/22/18 06:04 Attending/Attestation - Attestation I have personally seen and examined this patient.: Yes I have fully participated in the care of the patient.: Yes I have reviewed all pertinent clinical information, including history, physical exam and plan: Yes Notes (Text): 12/27/18 15:21 Medical attending: Patient was seen and examined by me. Agree with the above note by the resident The patient had a lot of questions with reguards to the percutaneous cholecystotomy tube and we need a fish hatchery supervisor to help us. He explained that he was having tenderness in the area and it concerned him. The Hgb is stable, WBC is stable, and there is no fever We would like to discharge him however he wanted to speak to surgery before leaving We explained to him that because of history of the aortic valve disease that surgery could not do removal and this is why they consulted IR for placement of the percutanous drain. Juan Mercado
[2018-12-27] MEDS: Piperacill/Tazo 3.375gm in Dex 3.375 GM/50 ML BAG IVPB SCH ×2 (14:31→22:16)
[2018-12-28] MEDS: Piperacill/Tazo 3.375gm in Dex 3.375 GM/50 ML BAG IVPB SCH ×2 (02:02→08:33)
[2018-12-28 07:26] LABS: BASO % 0.4 % (0.0-2.0); EOS # 0.2 K/uL (0.0-0.7); EOS % 1.5 % (0.0-4.0); HEMOGLOBIN 12.4 g/dL (12.0-18.0); LYMPH # 1.6 K/uL (1.0-4.3); LYMPH % 12.9 % (20.0-40.0); MEAN CELL VOLUME 94.4 fL (80.0-94.0); MEAN CORPUSCULAR HEMOGLOBIN 32.8 pg (27.0-31.0); MEAN CORPUSCULAR HGB CONC 34.7 g/dL (33.0-37.0); MEAN PLATELET VOLUME 9.2 fL (7.2-11.7); MONO # 0.6 K/uL (0.0-0.8); MONO % 4.9 % (0.0-10.0); NEUT # 10.1 K/uL (1.8-7.0); NEUT % 80.3 % (50.0-75.0); RBC 3.79 Mil/uL (4.40-5.90); WHITE BLOOD COUNT 12.5 K/uL (4.8-10.8)
[2018-12-28 07:48] LABS: ALT/SGPT 31 U/L (21-72); AST/SGOT 26 U/L (17-59); BLOOD UREA NITROGEN 14 mg/dL (9-20); CALCIUM 8.4 mg/dl (8.6-10.4); GFR NON-AFRICAN AMERICAN > 60
--- NOTE | 2018-12-28 07:49 | CP.PCM.PN ---
Objective - Vital Signs/Intake and Output Vital Signs (last 24 hours): Temp Pulse Resp BP Pulse Ox 98.1 F 82 20 156/65 H 97 12/27/18 23:33 12/27/18 23:33 12/27/18 23:33 12/27/18 23:33 12/27/18 23:33 Intake and Output: 12/28/18 12/28/18 06:59 18:59 Intake Total 1780 Output Total 200 Balance 1580 - Medications Medications: Current Medications Acetaminophen (Tylenol 325mg Tab) 650 mg PO Q6 PRN PRN Reason: Pain, Mild (1-3) Apixaban (Eliquis) 5 mg PO BID [facility] Last Admin: 12/27/18 17:11 Dose: 5 mg Piperacillin Sod/Tazobactam Sod (Zosyn 3.375 Gm Iv Premix) 3.375 gm in 50 mls @ 100 mls/hr IVPB Q6H [facility]; Protocol Last Admin: 12/28/18 02:02 Dose: 100 mls/hr Ketorolac Tromethamine (Toradol) 30 mg IVP Q6 PRN PRN Reason: Pain, moderate (4-7) Last Admin: 12/27/18 18:03 Dose: 30 mg Rosuvastatin Calcium (Crestor) 10 mg PO HS [facility] Last Admin: 12/27/18 22:16 Dose: 10 mg - Labs Labs: 12/28/18 07:09 12/28/18 07:09 PT 16.4 SECONDS (9.7-12.2) H 12/22/18 06:04 INR 1.5 12/22/18 06:04 APTT 44.0 SECONDS (21-34) H 12/22/18 06:04
[2018-12-28 08:05] VITALS: BP 142/68; PULSE 78; TEMP 99.1
[2018-12-28] MEDS ORDERED: Naproxen 275 mg Tab PO ONE (15:06)
--- NOTE | 2018-12-28 16:22 | CP.PCM.DIS ---
<Trent Sharp M - Last Filed: 12/28/18 16:09> Provider - Provider Date of Admission: 12/25/18 15:34 Attending physician: Juan Mercado DO Primary care physician: Dr. Duncan Consults: 12/22/18 09:33 General Surgery Consult Stat Comment: Consulting Provider: Qasim Wilson Consulting Physician: Qasim Wilson Reason for Consult: cholecystitis 12/24/18 11:27 Physician Consult Routine Comment: Consulting Provider: Timo Hamilton Consulting Physician: Timo Hamilton Reason for Consult: cholecystitis, eval for ana rosa tube Additional Comments: high risk for OR with recent diagnosis of severe aortic valve stenosis needing TAVR and a fib on anticoagulation Time Spent in preparation of Discharge (in minutes): 40 Diagnosis - Discharge Diagnosis (1) Cholecystitis Status: Acute Comment: s/p perc. cholecystomy tube (2) Atrial fibrillation Status: Chronic Comment: on eliquis 5 BID (3) Aortic stenosis, severe Status: Chronic Comment: o/p management Hospital Course - Lab Results Lab Results: Micro Results 12/25/18 12:59 Abdominal Fluid Gram Stain - Final 12/25/18 12:59 Abdominal Fluid Body Fluid Culture - Final Klebsiella Oxytoca 12/22/18 09:30 Blood-Venous Blood Culture - Final NO GROWTH AFTER 5 DAYS 12/22/18 09:30 Blood-Venous Gram Stain - Final TEST NOT PERFORMED 12/22/18 09:50 Blood-Venous Blood Culture - Final NO GROWTH AFTER 5 DAYS 12/22/18 09:50 Blood-Venous Gram Stain - Final TEST NOT PERFORMED Most Recent Lab Values WBC 12.5 K/uL (4.8-10.8) H 12/28/18 07:09 RBC 3.79 Mil/uL (4.40-5.90) L 12/28/18 07:09 Hgb 12.4 g/dL (12.0-18.0) 12/28/18 07:09 Hct 35.7 % (35.0-51.0) 12/28/18 07:09 MCV 94.4 fL (80.0-94.0) H 12/28/18 07:09 MCH 32.8 pg (27.0-31.0) H 12/28/18 07:09 MCHC 34.7 g/dL (33.0-37.0) 12/28/18 07:09 RDW 13.0 % (11.5-14.5) 12/28/18 07:09 Plt Count 402 K/uL (130-400) H 12/28/18 07:09 MPV 9.2 fL (7.2-11.7) 12/28/18 07:09 Neut % (Auto) 80.3 % (50.0-75.0) H 12/28/18 07:09 Lymph % (Auto) 12.9 % (20.0-40.0) L 12/28/18 07:09 Madison % (Auto) 4.9 % (0.0-10.0) 12/28/18 07:09 Eos % (Auto) 1.5 % (0.0-4.0) 12/28/18 07:09 Baso % (Auto) 0.4 % (0.0-2.0) 12/28/18 07:09 Neut # (Auto) 10.1 K/uL (1.8-7.0) H 12/28/18 07:09 Lymph # (Auto) 1.6 K/uL (1.0-4.3) 12/28/18 07:09 Madison # (Auto) 0.6 K/uL (0.0-0.8) 12/28/18 07:09 Eos # (Auto) 0.2 K/uL (0.0-0.7) 12/28/18 07:09 Baso # (Auto) 0.0 K/uL (0.0-0.2) 12/28/18 07:09 Neutrophils % (Manual) 79 % (50-75) H 12/23/18 08:42 Lymphocytes % (Manual) 11 % (20-40) L 12/23/18 08:42 Monocytes % (Manual) 10 % (0-10) 12/23/18 08:42 Eosinophils % (Manual) 1 % (0-4) 12/22/18 06:05 Platelet Estimate Normal (NORMAL) 12/23/18 08:42 Large Platelets Present 12/22/18 06:05 RBC Morphology Normal 12/22/18 06:05 PT 16.4 SECONDS (9.7-12.2) H 12/22/18 06:04 INR 1.5 12/22/18 06:04 APTT 44.0 SECONDS (21-34) H 12/22/18 06:04 Sodium 140 mmol/L (132-148) 12/28/18 07:09 Potassium 3.8 mmol/L (3.6-5.2) 12/28/18 07:09 Chloride 103 mmol/L (98-107) 12/28/18 07:09 Carbon Dioxide 30 mmol/L (22-30) 12/28/18 07:09 Anion Gap 11 (10-20) 12/28/18 07:09 BUN 14 mg/dL (9-20) 12/28/18 07:09 Creatinine 1.1 mg/dL (0.8-1.5) 12/28/18 07:09 Est GFR ( Amer) > 60 12/28/18 07:09 Est GFR (Non-Af Amer) > 60 12/28/18 07:09 Random Glucose 90 mg/dL (75-110) 12/28/18 07:09 Calcium 8.4 mg/dl (8.6-10.4) L 12/28/18 07:09 Phosphorus 2.9 mg/dL (2.5-4.5) 12/28/18 07:09 Magnesium 2.0 mg/dL (1.6-2.3) 12/28/18 07:09 Total Bilirubin 0.7 mg/dL (0.2-1.3) 12/28/18 07:09 AST 26 U/L (17-59) 12/28/18 07:09 ALT 31 U/L (21-72) 12/28/18 07:09 Alkaline Phosphatase 64 U/L (38-126) 12/28/18 07:09 Total Protein 6.0 g/dL (6.3-8.3) L 12/28/18 07:09 Albumin 3.0 g/dL (3.5-5.0) L 12/28/18 07:09 Globulin 3.0 gm/dL (2.2-3.9) 12/28/18 07:09 Albumin/Globulin Ratio 1.0 (1.0-2.1) 12/28/18 07:09 Lipase 37 U/L (23-300) 12/22/18 06:05 Urine Color Jamee (YELLOW) 12/22/18 06:04 Urine Clarity Hazy (Clear) 12/22/18 06:04 Urine pH 5.0 (5.0-8.0) 12/22/18 06:04 Ur Specific Force 1.026 (1.003-1.030) 12/22/18 06:04 Urine Protein 2+ mg/dL (NEGATIVE) H 12/22/18 06:04 Urine Glucose (UA) Normal mg/dL (Normal) 12/22/18 06:04 Urine Ketones Trace mg/dL (NEGATIVE) 12/22/18 06:04 Urine Blood 2+ (NEGATIVE) H 12/22/18 06:04 Urine Nitrate Negative (NEGATIVE) 12/22/18 06:04 Urine Bilirubin Negative (NEGATIVE) 12/22/18 06:04 Urine Urobilinogen 2.0 mg/dL (0.2-1.0) 12/22/18 06:04 Ur Leukocyte Esterase Neg Isi/uL (Negative) 12/22/18 06:04 Urine WBC (Auto) 4 /hpf (0-5) 12/22/18 06:04 Urine RBC (Auto) 21 /hpf (0-3) H 12/22/18 06:04 Ur Squamous Epith Cells 1 /hpf (0-5) 12/22/18 06:04 Calcium Oxalate Crystal Occ /hpf (<OCC) H 12/22/18 06:04 Urine Bacteria Rare (<OCC) 12/22/18 06:04 Hyaline Casts 6-10 /lpf (0-2) H 12/22/18 06:04 Granular Casts (Auto) 19 /lpf (0-1) 12/22/18 06:04 - Hospital Course Hospital Course: HPI: Patient is a 78 yo male with new onset Afib, severe aortic stenosis, and HLD who presents with R-sided lower rib pain. Patient was just hospitalized with chest and abdominal pain during which he was found to have Afib and severe . He was started on Eliquis. Additionally, patient had some evidence for cholecystits. Patient was deemed high cardiac risk for surgery, and patient's abdominal symptoms resolved, so patient was discharged. Surgery recommended possible cholecystectomy in the future after patient has valvular surgery (ie. TAVR). Patient states that he felt well after leaving the hospital on Sunday. He says that he started to experience pain yesterday around 7PM. He points to the pain, and it is located on the R-side of his lower chest/abdomen. He has increased pain with palpation. Denies pain with deep inspiration or cough. Denies injury. He says the pain is constant. He says the nature of the pain feels similar to that of last week; however, it is in a new location (pain was lower abdomen prior). He says he has not eaten or taken meds since yesterday morning; however, he says this is just due to pain, not with any associated pain with eating or nausea or vomiting. Patient rates the pain severity 5/10. He only tried rest to relieve the pain. Denies palpitations, dysphagia/odynophagia, SOB. Hospital course: Pt began feeling better, surgery consulted IR for drain placement 2/2 cholelithiassis & sludge. Cultures + for klebsilla oxytoca, sensitive cipro outpatient (250 Q12H 7 days since qtc 457) on zosyn in hospital. Negative blood cultures X5 days, afebrile through course. Mild elevation in WBC @12.5, steady; however remained afebrile. Further management deemed for outpatient including management of aortic stensosis and eventual cholecystectomy Above is only summary of patient course through hospital, see EMR for full details. Below are discharge instructions provided to patient upon discharge. Patient is medically stable for discharge to home, as per Dr. Mercado. Please take medications as prescribed. Follow up appoints: 1) Patient will need to follow up with general surgery (Dr. Wilson) within 1 week of discharge for further monitoring/care of cystotomy tube and drain. Dr. Wilson will also determine how long tube remains in place. 2) Please follow up with your primary care provider (Dr. Duncan) for further monitoring and care of all chronic medical conditions. 3) Patient will also need to follow up with Cardiology (Dr. Shankar) for TAVR planning prior to any other surgical procedures, as patient is a high cardiac risk factor. Medication reconciliation: Please resume all home medications: 1) Lipator 20 mg, 1 tablet by mouth at evening time 2) Eliquis 5 mg, 1 tablet by mouth, every 12 hours Please fill and start the following medications: 1) Ciprofloxacin 250 mg, 1 tablet by mouth, every 12 hours, for 7 days total 2) naproxen 250 mg, 1 tablet by mouth, every 12 hours, only as needed for pain, please take with food While taking the ciprofloxacin, please eat yogurt with probiotics. Drain instructions: Please change the drain bag as per nursing instructions. If any of the symptoms or worsen, please return to the nearest emergency medical facility. Discharge Exam - Head Exam Head Exam: ATRAUMATIC, NORMAL INSPECTION, NORMOCEPHALIC - Eye Exam Eye Exam: EOMI, Normal appearance - ENT Exam ENT Exam: Mucous Membranes Moist - Respiratory Exam Respiratory Exam: Clear to PA & Lateral, UNREMARKABLE. absent: Wheezes - Cardiovascular Exam Cardiovascular Exam: +S1, +S2, Systolic Murmur Additional comments: holosystolic murmure greastest at 2nd intercostal area, aortic stenosis severe - GI/Abdominal Exam GI & Abdominal Exam: Normal Bowel Sounds, Soft. absent: Distended, Firm, Hernia, Rigid Additional comments: drain in place, slight pain on tendereness at incision site - Back Exam Back exam: absent: CVA tenderness (L), CVA tenderness (R) - Neurological Exam Neurological exam: Alert, Oriented x3 - Psychiatric Exam Psychiatric exam: Normal Affect, Normal Mood - Skin Skin Exam: Dry, Intact, Normal Color, Warm Discharge Plan - Discharge Medications Prescriptions: Apixaban [Eliquis] 5 mg PO BID #60 tab Atorvastatin [Lipitor] 20 mg PO DAILY #30 tab Ciprofloxacin [Cipro] 250 mg PO Q12H 7 Days #14 tab Naproxen 250 mg PO Q12H PRN 5 Days #10 tablet PRN Reason: Pain, Severe (8-10) - Follow Up Plan Condition: STABLE Disposition: HOME/ ROUTINE Instructions: Gallstones, Atrial Fibrillation, Aortic Stenosis, Cholecystitis (DC), Cholecystitis (GEN) Additional Instructions: Patient is medically stable for discharge to home, as per Dr. Mercado. Please take medications as prescribed. Follow up appoints: 1) Patient will need to follow up with general surgery (Dr. Wilson) within 1 week of discharge for further monitoring/care of cystotomy tube and drain. Dr. Wilson will also determine how long tube remains in place. 2) Please follow up with your primary care provider (Dr. Duncan) for further monitoring and care of all chronic medical conditions. 3) Patient will also need to follow up with Cardiology (Dr. Shankar) for TAVR planning prior to any other surgical procedures, as patient is a high cardiac risk factor. Medication reconciliation: Please resume all home medications: 1) Lipator 20 mg, 1 tablet by mouth at evening time 2) Eliquis 5 mg, 1 tablet by mouth, every 12 hours Please fill and start the following medications: 1) Ciprofloxacin 250 mg, 1 tablet by mouth, every 12 hours, for 7 days total 2) naproxen 250 mg, 1 tablet by mouth, every 12 hours, only as needed for pain, please take with food While taking the ciprofloxacin, please eat yogurt with probiotics. Drain instructions: Please change the drain bag as per nursing instructions. If any of the symptoms or worsen, please return to the nearest emergency medical facility. El paciente se encuentra mdicamente estable para el cisco hospitalaria, segn el Dr. Mercado. Por favor, tome los medicamentos segn lo prescrito. Seguimiento nombra: 1) El paciente deber realizar un seguimiento con ciruga general (Dr. Wilson) dentro de la primera semana del cisco hospitalaria para un control / cuidado adicional del tubo de cistotoma y el drenaje. El Dr. Wilson tamunique determinar cunto tiempo permanece el tubo en sanchez lugar. 2) Por favor, bandar un seguimiento con sanchez proveedor de atencin primaria (Dr. Duncan) para ingrid mayor supervisin y atencin de todas las condiciones mdicas crnicas. 3) El paciente tambin deber realizar un seguimiento con Cardiologa (Dr. Shankar) para la planificacin de TAVR antes de cualquier otro procedimiento quirrgico, ya que el paciente es un factor de alto riesgo cardaco. Reconciliacin de medicamentos: Por favor, reanude todos los medicamentos caseros: 1) Lipator 20 mg, 1 tableta por va oral al anochecer 2) Eliquis 5 mg, 1 tableta por va oral, cada 12 horas. Por favor llene y comience los siguientes medicamentos: 1) Ciprofloxacina 250 mg, 1 tableta por va oral, cada 12 horas, rocco un total de 7 quinn 2) naproxeno 250 mg, 1 tableta por va oral, cada 12 horas, solo segn sea necesario para el dolor, tmelo con alimentos Mientras jovani la ciprofloxacina, coma yogurt con probiticos. Instrucciones de drenaje: Por favor, cambie la bolsa de drenaje segn las instrucciones de enfermera. Si alguno de los sntomas empeora, regrese al [facility] [place]. Referrals: Qasim Wilson MD [Staff Provider] - Raffi Shankar MD [Staff Provider] - <Juan Mercado - Last Filed: 12/28/18 17:24> Provider - Provider Date of Admission: 12/25/18 15:34 Attending physician: Juan Mercado DO Consults: 12/22/18 09:33 General Surgery Consult Stat Comment: Consulting Provider: Qasim Wilson Consulting Physician: Qasim Wilson Reason for Consult: cholecystitis 12/24/18 11:27 Physician Consult Routine Comment: Consulting Provider: Timo Hamilton Consulting Physician: Timo Hamilton Reason for Consult: cholecystitis, eval for ana rosa tube Additional Comments: high risk for OR with recent diagnosis of severe aortic valve stenosis needing TAVR and a fib on anticoagulation Hospital Course - Lab Results Lab Results: Micro Results 12/25/18 12:59 Abdominal Fluid Gram Stain - Final 12/25/18 12:59 Abdominal Fluid Body Fluid Culture - Final Klebsiella Oxytoca 12/22/18 09:30 Blood-Venous Blood Culture - Final NO GROWTH AFTER 5 DAYS 12/22/18 09:30 Blood-Venous Gram Stain - Final TEST NOT PERFORMED 12/22/18 09:50 Blood-Venous Blood Culture - Final NO GROWTH AFTER 5 DAYS 12/22/18 09:50 Blood-Venous Gram Stain - Final TEST NOT PERFORMED Most Recent Lab Values WBC 12.5 K/uL (4.8-10.8) H 12/28/18 07:09 RBC 3.79 Mil/uL (4.40-5.90) L 12/28/18 07:09 Hgb 12.4 g/dL (12.0-18.0) 12/28/18 07:09 Hct 35.7 % (35.0-51.0) 12/28/18 07:09 MCV 94.4 fL (80.0-94.0) H 12/28/18 07:09 MCH 32.8 pg (27.0-31.0) H 12/28/18 07:09 MCHC 34.7 g/dL (33.0-37.0) 12/28/18 07:09 RDW 13.0 % (11.5-14.5) 12/28/18 07:09 Plt Count 402 K/uL (130-400) H 12/28/18 07:09 MPV 9.2 fL (7.2-11.7) 12/28/18 07:09 Neut % (Auto) 80.3 % (50.0-75.0) H 12/28/18 07:09 Lymph % (Auto) 12.9 % (20.0-40.0) L 12/28/18 07:09 Madison % (Auto) 4.9 % (0.0-10.0) 12/28/18 07:09 Eos % (Auto) 1.5 % (0.0-4.0) 12/28/18 07:09 Baso % (Auto) 0.4 % (0.0-2.0) 12/28/18 07:09 Neut # (Auto) 10.1 K/uL (1.8-7.0) H 12/28/18 07:09 Lymph # (Auto) 1.6 K/uL (1.0-4.3) 12/28/18 07:09 Madison # (Auto) 0.6 K/uL (0.0-0.8) 12/28/18 07:09 Eos # (Auto) 0.2 K/uL (0.0-0.7) 12/28/18 07:09 Baso # (Auto) 0.0 K/uL (0.0-0.2) 12/28/18 07:09 Neutrophils % (Manual) 79 % (50-75) H 12/23/18 08:42 Lymphocytes % (Manual) 11 % (20-40) L 12/23/18 08:42 Monocytes % (Manual) 10 % (0-10) 12/23/18 08:42 Eosinophils % (Manual) 1 % (0-4) 12/22/18 06:05 Platelet Estimate Normal (NORMAL) 12/23/18 08:42 Large Platelets Present 12/22/18 06:05 RBC Morphology Normal 12/22/18 06:05 PT 16.4 SECONDS (9.7-12.2) H 12/22/18 06:04 INR 1.5 12/22/18 06:04 APTT 44.0 SECONDS (21-34) H 12/22/18 06:04 Sodium 140 mmol/L (132-148) 12/28/18 07:09 Potassium 3.8 mmol/L (3.6-5.2) 12/28/18 07:09 Chloride 103 mmol/L (98-107) 12/28/18 07:09 Carbon Dioxide 30 mmol/L (22-30) 12/28/18 07:09 Anion Gap 11 (10-20) 12/28/18 07:09 BUN 14 mg/dL (9-20) 12/28/18 07:09 Creatinine 1.1 mg/dL (0.8-1.5) 12/28/18 07:09 Est GFR ( Amer) > 60 12/28/18 07:09 Est GFR (Non-Af Amer) > 60 12/28/18 07:09 Random Glucose 90 mg/dL (75-110) 12/28/18 07:09 Calcium 8.4 mg/dl (8.6-10.4) L 12/28/18 07:09 Phosphorus 2.9 mg/dL (2.5-4.5) 12/28/18 07:09 Magnesium 2.0 mg/dL (1.6-2.3) 12/28/18 07:09 Total Bilirubin 0.7 mg/dL (0.2-1.3) 12/28/18 07:09 AST 26 U/L (17-59) 12/28/18 07:09 ALT 31 U/L (21-72) 12/28/18 07:09 Alkaline Phosphatase 64 U/L (38-126) 12/28/18 07:09 Total Protein 6.0 g/dL (6.3-8.3) L 12/28/18 07:09 Albumin 3.0 g/dL (3.5-5.0) L 12/28/18 07:09 Globulin 3.0 gm/dL (2.2-3.9) 12/28/18 07:09 Albumin/Globulin Ratio 1.0 (1.0-2.1) 12/28/18 07:09 Lipase 37 U/L (23-300) 12/22/18 06:05 Urine Color Jamee (YELLOW) 12/22/18 06:04 Urine Clarity Hazy (Clear) 12/22/18 06:04 Urine pH 5.0 (5.0-8.0) 12/22/18 06:04 Ur Specific Force 1.026 (1.003-1.030) 12/22/18 06:04 Urine Protein 2+ mg/dL (NEGATIVE) H 12/22/18 06:04 Urine Glucose (UA) Normal mg/dL (Normal) 12/22/18 06:04 Urine Ketones Trace mg/dL (NEGATIVE) 12/22/18 06:04 Urine Blood 2+ (NEGATIVE) H 12/22/18 06:04 Urine Nitrate Negative (NEGATIVE) 12/22/18 06:04 Urine Bilirubin Negative (NEGATIVE) 12/22/18 06:04 Urine Urobilinogen 2.0 mg/dL (0.2-1.0) 12/22/18 06:04 Ur Leukocyte Esterase Neg Isi/uL (Negative) 12/22/18 06:04 Urine WBC (Auto) 4 /hpf (0-5) 12/22/18 06:04 Urine RBC (Auto) 21 /hpf (0-3) H 12/22/18 06:04 Ur Squamous Epith Cells 1 /hpf (0-5) 12/22/18 06:04 Calcium Oxalate Crystal Occ /hpf (<OCC) H 12/22/18 06:04 Urine Bacteria Rare (<OCC) 12/22/18 06:04 Hyaline Casts 6-10 /lpf (0-2) H 12/22/18 06:04 Granular Casts (Auto) 19 /lpf (0-1) 12/22/18 06:04 Attending/Attestation - Attestation I have personally seen and examined this patient.: Yes I have fully participated in the care of the patient.: Yes I have reviewed all pertinent clinical information, including history, physical exam and plan: Yes Notes (Text): 12/28/18 17:16 Medical attending: Patient was seen and examined by me. Reviewed the above note by the resident and agree with the above The patient was at rest, not in distress. He reported that he did not have abdominal pain on exam but showed us the pain was more right lower chest pain. As mentioned previously surgery consulted IR because he could not have cholesectomy due to his cardiac history. The percutaneus cholecystomtomy tube that was placed will eventually have to be removed. He will need to follow up with surgery for removal in the future. This was explained to him via translation service. He will also need to take PO abx and also Naproxen for pain control Patient has been told several times that he needs to be followed up by his recordist to address his aortic stenosis. Until that is addressed, the patient cannot undergo cholesectomy. thank you Juan Mercado
== END 2018-12-28 16:11 | disposition home or self-care (01) | DRG 446 ==
LOC: C.ER 04:56 → C.9E 11:49 → C.3T 12:33 → OBSVTOIN 12-25 15:34
PROVIDERS: ADMIT Hospitalist; ATTEND Hospitalist
PROC: 0F9430Z Drainage of Gallbladder with Drainage Device, Percutaneous Approach (ICD-10-PCS; principal; 2018-12-25)
DX: K81.0 Acute cholecystitis (principal); I48.91 Unspecified atrial fibrillation; E78.5 Hyperlipidemia, unspecified; I35.0 Nonrheumatic aortic (valve) stenosis; Z82.3 Family history of stroke; Z87.891 Personal history of nicotine dependence; Z79.01 Long term (current) use of anticoagulants